=== PATIENT | female | born 1945 | race Caucasian/White ===

== ENCOUNTER 2016-03-20 15:10 | Observation (INO) ==
[2016-03-20] MEDS ORDERED: Ipratropium/Albuterol Neb 3 ML IH ONE ×2 (15:34→20:38)
--- NOTE | 2016-03-20 15:35 | Emergency Department Note ---
Disposition Clinical Impression: Pneumonia, COPD (chronic obstructive pulmonary disease) Disposition: Admitted As Inpatient Condition: Fair URI/Sore Throat HPI - General Chief Complaint: ED Upper Respiratory Infection Stated Complaint: flu- like symptoms Time Seen by Provider: 03/20/16 15:14 Source: patient Mode of arrival: ambulatory Limitations: no limitations Nursing Notes Reviewed: Yes Vital Signs Reviewed: Yes - History of Present Illness HPI Narrative: Emergency: Congestion patient thinks that she may be developing the flu she denies any blurred vision double vision loss and states that she is wheezing cannot catch her breath despite being on home oxygen he states this is more than her normal were normally she can break it with a breathing treatment Pt Subjective Complaint: fever, cough, flu symptoms, other (wheezing) Onset (ago): day(s) Duration: intermittent Severity: none Improves with: other (aerosols) Worsens with: exertion If sputum, description: watery Associated symptoms: Reports: myalgias, nasal congestion, cough, shortness of breath. Denies: fever, chills, voice changes, diaphoresis, headache, rhinorrhea , sore throat, stiff neck, chest pain, abdominal pain, nausea, vomiting, diarrhea, dysuria, rash, ear pain Treatments prior to arrival: other (see frequently in the er) - Related Data Home Medications Medication Instructions Recorded Confirmed Aspirin 81 mg PO DAILY 11/30/15 03/20/16 Digoxin [Lanoxin] 0.125 mg PO DAILY 11/30/15 03/20/16 Ferrous Sulfate 325 mg PO DAILY 11/30/15 03/20/16 Furosemide [Lasix] 20 mg PO DAILY 11/30/15 03/20/16 Gabapentin [Neurontin] 600 mg PO TID 11/30/15 03/20/16 Insulin LISPRO [HumaLOG] 4 units SQ TIDAC 11/30/15 03/20/16 Magnesium Oxide [Magnesium] 400 mg PO DAILY 11/30/15 03/20/16 Previous Rx's Medication Instructions Recorded Albuterol Neb [Proventil Neb] 2.5 mg IH Q4HR PRN #30 vial.neb 11/13/15 Albuterol Sulfate [Albuterol 2 puff IH Q6HR PRN #1 hfa.aer.ad 11/13/15 Inhaler] Ranolazine [Ranexa] 500 mg PO DAILY #7 tab.er.12h 01/18/16 Albuterol Sulfate [Albuterol 2 puff IH Q4HR #1 hfa.aer.ad 03/17/16 Inhaler] Benzonatate [Tessalon] 100 mg PO TID PRN #30 capsule 03/17/16 Allergies Allergy/AdvReac Type Severity Reaction Status Date / Time Penicillins Allergy Hives Verified 01/14/16 17:55 lorazepam [From Ativan] AdvReac Hives Verified 01/14/16 17:55 All systems ED: reviewed and negative except as stated. Constitutional: Reports: fever, weakness. Denies: chills Eyes: Denies: vision change ENT ED: Reports: congestion. Denies: ear pain, throat pain, dental pain Cardiovascular: Reports: dyspnea on exertion. Denies: chest pain, palpitations Respiratory: Reports: cough, dyspnea, wheezes, sputum production Gastrointestinal: Denies: abdominal pain, nausea, vomiting Genitourinary: Denies: urgency Integumentary: Denies: rash Neurological: Denies: headache Psychiatric: Reports: anxiety Endocrine: Denies: fatigue Hematological/Lymphatic: Denies: easy bleeding Allergic/Immunologic: Denies: facial swelling URI PMH - Past Medical History Medical history: Reports: arthritis, asthma, cardiomyopathy, COPD, CVA, diabetes , GERD, hyperlipidemia, hypertension, myocardial infarction, osteoporosis, peripheral artery disease Surgical history: Reports: hysterectomy Psychiatric history: Reports: anxiety, depression, panic disorder PELT SHEARER history: Reports: no PELT SHEARER history - Social History Smoking Status: Current every day smoker Alcohol use: Reports: none Drug use: Reports: none Physical Exam - General Limitations: no limitations General appearance: alert, in no apparent distress, anxious - Head Head exam: atraumatic, normocephalic, normal inspection - Eye Eye exam: Present: normal appearance, PERRL, EOMI - ENT ENT exam: normal exam, normal oropharynx, mucous membranes moist, normal external ear exam - Neck Neck exam: Present: normal inspection, full ROM, trachea midline - Chest Chest inspection: Present: normal inspection, symmetric chest wall rise - Respiratory Respiratory exam: Present: wheezes, accessory muscle use, prolonged expiratory phase - Cardiovascular Cardiovascular exam: Present: regular rate, normal rhythm, normal heart sounds - Abdominal Exam Abdominal exam: Present: soft, Non-Tender, normal bowel sounds. Absent: mass, pulsatile mass - Extremities Exam Extremities exam: Present: normal inspection, full ROM, normal capillary refill - Expanded Lower Extremity Exam Gait: observed and normal - Back Exam Back exam: Present: normal inspection, full ROM. Absent: muscle spasm - Neurological Exam Neurological exam: Present: alert, oriented X3, CN II-XII intact - Psychiatric Psychiatric exam: Present: anxious - Skin Skin exam: Present: warm, dry, intact, normal color Course Course Narrative: seen and examined flu swab done chest x-ray pending awaiting results Vital Signs Temperature 97.1 F L 03/20/16 15:14 Pulse Rate 94 03/20/16 15:14 Respiratory Rate 24 03/20/16 15:14 Blood Pressure 100/65 03/20/16 15:14 O2 Sat by Pulse Oximetry 100 03/20/16 15:14 Temperature 98.1 F 03/21/16 00:00 Pulse Rate 111 03/21/16 00:00 Respiratory Rate 19 03/21/16 00:00 Blood Pressure 125/71 03/21/16 00:00 O2 Sat by Pulse Oximetry 100 03/21/16 00:00 Oxygen Delivery Oxygen Delivery Nasal Cannula Upper Respiratory Infection - Differential Diagnosis Differential Diagnosis: Likely: upper respiratory infection, other viral infection, bronchitis, pneumonia - Medical Records Medical records reviewed: Yes I reviewed the patient's medical records. - Lab Data Lab results reviewed: Yes I reviewed the patient's lab results. Result diagrams: 03/20/16 19:32 03/20/16 19:32 - Radiology Data Radiology results reviewed: Yes I reviewed the patient's radiology results. ITS Impressions Chest X-Ray 03/20/16 16:23 IMPRESSION: Probable COPD. Increased lung markings at the bilateral parahilar regions, and at the right lung apex, likely related to bronchitis versus early number. D/ / David Owusu MD / David Owusu MD Interpreting Provider: David Owusu MD Critical Care Time Critical Care Time: No
[2016-03-20] MEDS ORDERED: Levofloxacin 500 MG/100 ML 500 MG/100 ML BAG IVPB ONE ×2 (17:16→17:51)
[2016-03-20] MEDS: 0.9 % Sodium Chloride 1,000 ML IVC SCH ×3 (17:45→23:46)
[2016-03-20] MEDS ORDERED: Ondansetron 4 MG/2 ML VIAL IVP PRN (17:51)
[2016-03-20] MEDS ORDERED: D5% in Water 1,000 ML IV PRN (17:51)
[2016-03-20] MEDS ORDERED: Naloxone 0.4 MG/ML INJ IVP PRN (17:51)
[2016-03-20] MEDS ORDERED: Dextrose Gel 15 GM PO PRN ×2 (17:51)
[2016-03-20] MEDS ORDERED: *HR* Dextrose 50 % in Water (Syg) 50 ML SYRINGE IVP PRN (17:51)
[2016-03-20] MEDS: Levofloxacin 750 MG/150 ML 750 MG/150 ML BAG IVPB SCH (18:23)
[2016-03-20 19:38] LABS: Basophils # 0.1 K/mcL (0.0-0.2); Eosinophils # 0.2 K/mcL (0.0-0.6); Eosinophils % 1.4 %; Hematocrit 40.1 % (35.3-44.9); Hemoglobin 12.7 g/dL (11.5-15.4); Immature Granulocytes % 0.6 % (0-4); Lymphocytes # 1.2 K/mcL (0.6-4.6); Mean Corpuscular HGB Conc 31.7 g/dL (31.6-35.5); Mean Corpuscular Hemoglobin 26.6 pg (28.0-33.3); Mean Corpuscular Volume 84.1 fL (83.0-100.0); Mean Platelet Volume 10.5 fL (9.4-12.4); Monocytes # 0.3 K/mcL (0.0-1.3); Monocytes % 2.5 %; Neutrophils # 11.1 K/mcL (1.6-8.9); Platelet Count 332 K/mcL (140-400); Red Blood Count 4.77 M/mcL (3.82-4.97); Red Cell Distribution Width 14.6 % (11.5-14.5); Segmented Neutrophils % 85.5 %
[2016-03-20 19:52] LABS: BUN/Creatinine Ratio 7 (6-26); Blood Urea Nitrogen 7 mg/dL (7-20); Calcium 9.1 mg/dL (8.6-10.8); Carbon Dioxide 18 mEq/L (19-29); Chloride 105 mEq/L (98-109); Glucose 306 mg/dL (70-99); Osmolality,Calculated 294 (280-300); Sodium 137 mEq/L (136-145); eGFR For African Americans > 60 (> 60); eGFR For Non-African Americans 51 (> 60)
[2016-03-20 19:54] LABS: Prothrombin Time 11.1 Seconds (9.4-12.1)
[2016-03-20 19:57] LABS: Activated Partial Thrombo Time 29.1 Seconds (26.0-36.0)
[2016-03-20] MEDS: Ipratropium/Albuterol Neb 3 ML IH SCH (21:02)
[2016-03-20] MEDS: Gabapentin 300 MG CAPSULE PO SCH (21:41)
[2016-03-20] MEDS: Insulin LISPRO 300 UNITS/3 ML VIAL SQ SCH (22:00)
[2016-03-21] MEDS: 0.9 % Sodium Chloride 1,000 ML IVC SCH ×3 (01:47→09:23)
[2016-03-21] MEDS: Ipratropium/Albuterol Neb 3 ML IH SCH ×3 (04:54→16:40)
[2016-03-21] MEDS: Insulin LISPRO 300 UNITS/3 ML VIAL SQ SCH ×7 (09:18→21:00)
[2016-03-21] MEDS: *HR* Digoxin 0.125 MG TABLET PO SCH (09:20)
[2016-03-21] MEDS: Ranolazine 500 MG TAB.ER.12H PO SCH (09:20)
[2016-03-21] MEDS: Magnesium Oxide 400 MG TABLET PO SCH (09:20)
[2016-03-21] MEDS: Aspirin 81 MG TAB.CHEW PO SCH (09:20)
[2016-03-21] MEDS: Furosemide 20 MG TABLET PO SCH (09:20)
[2016-03-21] MEDS: Albuterol 2.5 MG/3 ML NEBULIZER IH PRN ×2 (12:06→22:03)
--- NOTE | 2016-03-21 15:56 | Internal Med History&Physical ---
Date of Encounter: 03/21/16 Time of Encounter: 15:35 Assessment and Plan (1) COPD (chronic obstructive pulmonary disease) Current visit: Yes Status: Chronic She was given Levaquin and Solu-Medrol in emergency room. I will continue Levaquin and change to prednisone since she has no active wheezing. Further workup will be done as needed. Qualifiers: COPD type: unspecified COPD Qualified Code(s): J44.9 - Chronic obstructive pulmonary disease, unspecified (2) Folate deficiency Current visit: Yes Status: Acute We will recheck folate level in a.m. (3) CKD (chronic kidney disease) stage 3, GFR 30-59 ml/min Current visit: No Status: Chronic We will monitor renal indices. (4) DM type 2 (diabetes mellitus, type 2) Current visit: No Status: Chronic We will check hemoglobin A1c in a.m. Most recent level was 8.9% on 08/25/2015. Qualifiers: Diabetes mellitus complication status: with kidney complications Diabetes mellitus complication detail: with chronic kidney disease Diabetes mellitus jail insulin use: without assistant terminal manager use Chronic kidney disease stage: stage 3 (moderate) Qualified Code(s): E11.22 - Type 2 diabetes mellitus with diabetic chronic kidney disease; N18.3 - Chronic kidney disease, stage 3 ( moderate) (5) Diastolic heart failure Current visit: Yes Status: Chronic Continue aspirin and Lanoxin. Qualifiers: Heart failure chronicity: chronic Qualified Code(s): I50.32 - Chronic diastolic (congestive) heart failure Internal Medicine - H&P: HPI Chief complaint: Dyspnea Admitted From: Home Plans for Post Hospital Care: Home History of present illness: Ms. Jules is a 70 year old female who came to emergency room stating she had progressive dyspnea over the preceding few days at home. She states she had a cough productive of minimal white sputum. She was evaluated in the emergency room and felt to have exacerbation of COPD and possible early pneumonia. She was admitted to [facility] floor for ongoing care needs. Her respiratory history significant for having smoked since age 12 up to 3 packs per day. She wears oxygen 24/7 except taking it off to smoke. She had PFTs at [facility] approximately June 2013 and was diagnosed with COPD/emphysema. A chest CT was done May 2015 which showed severe COPD. Past Med Surg Social Fam HX - Past Medical History Medical history: arthritis, asthma, cardiomyopathy, COPD, CVA, diabetes, GERD, hyperlipidemia, hypertension, myocardial infarction, osteoporosis, peripheral artery disease Psychiatric history: anxiety, depression, panic disorder - Past Surgical History Surgical History: hysterectomy - Social History Smoking Status: Current every day smoker Packs per day: 0.5 Smokeless Tobacco Status: No Alcohol use: none Drug use: none - Family History Mother Family Member Ethnicity: Non- Living Status: Hx Family Cardiac Disorders: Yes Hx Family Respiratory Disorders: Yes Hx Family Cancer: Yes Hx Family GI Disorders: Yes Internal Medicine - H&P: Meds Albuterol Neb [Proventil Neb] 2.5 mg IH Q4HR PRN #30 vial.neb 11/13/15 [Rx] Albuterol Sulfate [Albuterol Inhaler] 2 puff IH Q6HR PRN #1 hfa.aer.ad 11/13/15 [Rx] Aspirin 81 mg PO DAILY 11/30/15 [History] Digoxin [Lanoxin] 0.125 mg PO DAILY 11/30/15 [History] Ferrous Sulfate 325 mg PO DAILY 11/30/15 [History] Furosemide [Lasix] 20 mg PO DAILY 11/30/15 [History] Gabapentin [Neurontin] 600 mg PO TID 11/30/15 [History] Insulin LISPRO [HumaLOG] 4 units SQ TIDAC 11/30/15 [History] Magnesium Oxide [Magnesium] 400 mg PO DAILY 11/30/15 [History] Ranolazine [Ranexa] 500 mg PO DAILY #7 tab.er.12h 01/18/16 [Rx] Albuterol Sulfate [Albuterol Inhaler] 2 puff IH Q4HR #1 hfa.aer.ad 03/17/16 [Rx] Benzonatate [Tessalon] 100 mg PO TID PRN #30 capsule 03/17/16 [Rx] Allergies Penicillins Allergy (Verified 01/14/16 17:55) Hives lorazepam [From Ativan] Adverse Reaction (Verified 01/14/16 17:55) Hives All Systems PM: A 10-system review of systems was performed and is negative for pertinent findings except as documented above in the HPI. Review of systems: Review of systems from her August 2015 [facility] hospitalization were reviewed and revised as below. Gen.: Her weight has been stable since the August 2015 [facility] hospitalization approximately 132 pounds. Cardiovascular: She has a history of hypertension. She had an echocardiogram done during the April 2014 [facility] stay which showed LVEF of 65-70% with mild LV diastolic dysfunction and normal systolic function. There was mild aortic regurgitation. She had possible NSTEMI at [facility] hospitalization April 2014 but declined further workup such as heart catheterization. She was hospitalized November 2015 at [facility] and had borderline high troponin. She left AMA before cardiology consultation could be done. She also refused colonoscopy at an earlier [facility] hospitalization. Respiratory: As per history of present illness GI: She has GERD but denies disorders of her liver gallbladder or exocrine pancreas. She has not had EGD or colonoscopy. : No history of hematuria dysuria or kidney stones Neurologic: No history of seizures. She is uncertain if she has had a stroke in the past. Endocrine: She has hyperlipidemia and diabetes but no known thyroid disease Hematology/oncology: she denies blood disorders or cancers. She has had microcytosis. She has history of B12 and folate deficiency Psychiatric: She has anxiety and depression Musk skeletal: She has DJD and chronic low back pain but no known gout. - Constitutional Vitals: Temp Pulse Resp BP Pulse Ox 97.6 F 102 30 101/60 95 03/21/16 15:20 03/21/16 15:20 03/21/16 15:20 03/21/16 15:20 03/21/16 15:20 Exam: Gen.: She is a well-developed well-nourished female who appears in minimal respiratory distress at present time. She coughed occasionally during examination. HEENT: Head is atraumatic and normal cephalic. Eyes: EOMI. There is no scleral icterus. Mouth: Mucosa is moist. Neck: Supple and nontender. There is no thyromegaly or adenopathy noted. Heart: Regular without murmurs gallops or ectopics. Lungs: No wheezes or crackles are heard. Abdomen: Soft and nontender. No masses or guarding noted. Extremities: There is no cyanosis edema or clubbing noted. Dorsalis pedis and posterior tibial pulses are trace -1+ palpable bilaterally. Neurologic: Mental status: She is talkative and a good historian. Cranial nerves: Smile is symmetric. Forehead wrinkles bilaterally. Tongue protrudes midline. EOMI. Motor: There is no pronator drift. Cerebellar: Finger to nose is intact bilaterally. Skin: Warm and dry Internal Med - H&P Results - Labs CBC & Chem 7: 03/20/16 19:32 03/20/16 19:32 Labs: Short CBC 03/20/16 Range/Units 19:32 WBC 13.0 H (4.3-11.1) K/mcL Hgb 12.7 D (11.5-15.4) g/dL Hct 40.1 (35.3-44.9) % Plt Count 332 (140-400) K/mcL Neutrophils # 11.1 H (1.6-8.9) K/mcL BMP 03/20/16 19:32 Sodium 137 Potassium 4.0 Chloride 105 Carbon Dioxide 18 L BUN 7 Creatinine 1.07 Glucose 306 H Calcium 9.1
[2016-03-21] MEDS ORDERED: *HR* LORazepam 0.5 MG TABLET PO PRN (20:01)
[2016-03-21] MEDS: Gabapentin 300 MG CAPSULE PO SCH (20:28)
[2016-03-21] MEDS: Budesonide/Formoterol 160/4.5 MDI IH SCH (22:04)
[2016-03-22] MEDS: Benzonatate 100 MG CAPSULE PO PRN ×2 (01:07→23:30)
[2016-03-22 05:39] LABS: Hematocrit 38.3 % (35.3-44.9); Hemoglobin 12.4 g/dL (11.5-15.4); Mean Corpuscular HGB Conc 32.4 g/dL (31.6-35.5); Mean Corpuscular Hemoglobin 26.7 pg (28.0-33.3); Mean Corpuscular Volume 82.4 fL (83.0-100.0); Mean Platelet Volume 10.4 fL (9.4-12.4); Platelet Count 349 K/mcL (140-400); Red Blood Count 4.65 M/mcL (3.82-4.97)
[2016-03-22 06:03] LABS: Magnesium 2.1 mg/dL (1.6-2.6); Uric Acid 4.4 mg/dL (2.6-6.0)
[2016-03-22 06:13] LABS: Digoxin < 0.3 ng/mL (0.8-2.0)
[2016-03-22 06:16] LABS: Lymphocytes # 2.2 K/mcL (0.6-4.6); Monocytes # 1.1 K/mcL (0.0-1.3); Toxic Vacuolation Present (Not Present)
[2016-03-22 06:17] LABS: Platelet Estimate Normal (Normal)
[2016-03-22 06:18] LABS: Anisocytosis 1+ (Not Present); Toxic Granulation Present (Not Present)
[2016-03-22 06:19] LABS: Hypersegmented Neutrophils Present (Not Present)
[2016-03-22] MEDS: Insulin LISPRO 300 UNITS/3 ML VIAL SQ SCH ×7 (08:16→20:58)
[2016-03-22 08:47] LABS: Hemoglobin A1C 7.4 %
[2016-03-22] MEDS: Furosemide 20 MG TABLET PO SCH (09:24)
[2016-03-22] MEDS: PredniSONE 10 MG TABLET PO SCH ×2 (09:24→16:26)
[2016-03-22] MEDS: *HR* Digoxin 0.125 MG TABLET PO SCH (09:24)
[2016-03-22] MEDS: Magnesium Oxide 400 MG TABLET PO SCH (09:24)
[2016-03-22] MEDS: Ranolazine 500 MG TAB.ER.12H PO SCH (09:24)
[2016-03-22] MEDS: Aspirin 81 MG TAB.CHEW PO SCH (09:25)
--- NOTE | 2016-03-22 10:33 | Internal Med Progress Note ---
Date of Encounter: 03/22/16 Time of Encounter: 10:25 - Assessment and plan (1) COPD (chronic obstructive pulmonary disease) Current Visit: Yes Status: Chronic Assessment and plan: March 22. Continue Levaquin and prednisone. I will order a NicoDerm patch. Qualifiers: COPD type: unspecified COPD Qualified Code(s): J44.9 - Chronic obstructive pulmonary disease, unspecified (2) Folate deficiency Current Visit: Yes Status: Acute Assessment and plan: March 22. Folate level is pending (3) CKD (chronic kidney disease) stage 3, GFR 30-59 ml/min Current Visit: No Status: Chronic Assessment and plan: March 22. We will monitor renal indices. (4) DM type 2 (diabetes mellitus, type 2) Current Visit: No Status: Chronic Assessment and plan: March 22. Hemoglobin A1c is slightly elevated at 7.4%. Blood sugars were reviewed. Will add Levemir and continue Accu-Cheks with SSI Qualifiers: Diabetes mellitus complication status: with kidney complications Diabetes mellitus complication detail: with chronic kidney disease Diabetes mellitus assistant terminal manager insulin use: without usp use Chronic kidney disease stage: stage 3 (moderate) Qualified Code(s): E11.22 - Type 2 diabetes mellitus with diabetic chronic kidney disease; N18.3 - Chronic kidney disease, stage 3 ( moderate) (5) Diastolic heart failure Current Visit: Yes Status: Chronic Assessment and plan: March 22. We will add Imdur and Coreg Qualifiers: Heart failure chronicity: chronic Qualified Code(s): I50.32 - Chronic diastolic (congestive) heart failure - Subjective Interval history: March 22. She has no new complaints. She feels she is having withdrawal from cigarettes and her Epsom at home. Reviewed her home medication list and Epsom is not listed - Constitutional Vitals: Temp Pulse Resp BP Pulse Ox 98.2 F 67 16 124/52 96 03/22/16 10:24 03/22/16 10:24 03/22/16 10:24 03/22/16 10:24 03/22/16 10:24 Exam: She is lying in bed and appears slightly anxious. Her heart is regular without murmurs gallops or ectopics. Lungs show no wheezes or crackles. I reviewed her medications and lab results. Internal Medicine: Result - Labs CBC & Chem 7: 03/22/16 05:23 03/20/16 19:32 Labs: Short CBC 03/22/16 Range/Units 05:23 WBC 27.6 H D (4.3-11.1) K/mcL Hgb 12.4 (11.5-15.4) g/dL Hct 38.3 (35.3-44.9) % Plt Count 349 (140-400) K/mcL Neutrophils # 24.0 H (1.6-8.9) K/mcL - ABG Interpretation ABG results: PT/INR, D-dimer PT 11.1 Seconds (9.4-12.1) 03/20/16 19:32 Consult Discharge Plan - Plan Referrals: NO,PCP [Primary Care Provider] - 1 week
[2016-03-22 10:37] LABS: % Iron Saturation 30 % (15-50); Iron 98 mcg/dL (50-170); Transferrin 236 mg/dL (180-382)
[2016-03-22] MEDS: Albuterol 2.5 MG/3 ML NEBULIZER IH PRN ×2 (10:38→21:29)
[2016-03-22] MEDS: Budesonide/Formoterol 160/4.5 MDI IH SCH ×2 (10:38→21:29)
[2016-03-22 10:58] LABS: Ferritin 103 ng/ml (5-204)
[2016-03-22] MEDS: Isosorbide MONOnitrate (24 HR) 30 MG TAB.ER.24H PO SCH (11:12)
[2016-03-22] MEDS: Nicotine 21 MG PATCH.TD24 TD SCH (11:12)
[2016-03-22] MEDS: Levofloxacin 750 MG/150 ML 750 MG/150 ML BAG IVPB SCH (17:38)
[2016-03-22] MEDS: Gabapentin 300 MG CAPSULE PO SCH (20:00)
[2016-03-22] MEDS: Insulin DETEMIR 100 UNIT/ML X5UNITS SQ SCH (20:58)
[2016-03-23 07:03] LABS: Calcium 9.6 mg/dL (8.6-10.8); Potassium 4.2 mEq/L (3.5-4.5)
[2016-03-23 07:19] LABS: Basophils # 0.1 K/mcL (0.0-0.2); Basophils % 0.3 %; Hematocrit 37.1 % (35.3-44.9); Hemoglobin 11.7 g/dL (11.5-15.4); Immature Granulocytes % 1.1 % (0-4); Lymphocytes # 3.6 K/mcL (0.6-4.6); Mean Corpuscular HGB Conc 31.5 g/dL (31.6-35.5); Mean Corpuscular Hemoglobin 26.5 pg (28.0-33.3); Mean Corpuscular Volume 84.1 fL (83.0-100.0); Mean Platelet Volume 10.8 fL (9.4-12.4); Monocytes # 1.3 K/mcL (0.0-1.3); Monocytes % 6.6 %; Neutrophils # 14.8 K/mcL (1.6-8.9); Platelet Count 328 K/mcL (140-400); Red Blood Count 4.41 M/mcL (3.82-4.97); Red Cell Distribution Width 14.9 % (11.5-14.5)
[2016-03-23] MEDS: Aspirin 81 MG TAB.CHEW PO SCH (09:02)
[2016-03-23] MEDS: Magnesium Oxide 400 MG TABLET PO SCH (09:03)
[2016-03-23] MEDS: *HR* Digoxin 0.125 MG TABLET PO SCH (09:03)
[2016-03-23] MEDS: PredniSONE 10 MG TABLET PO SCH ×2 (09:03→16:25)
[2016-03-23] MEDS: Ranolazine 500 MG TAB.ER.12H PO SCH (09:03)
[2016-03-23] MEDS: Isosorbide MONOnitrate (24 HR) 30 MG TAB.ER.24H PO SCH (09:04)
[2016-03-23] MEDS: Furosemide 20 MG TABLET PO SCH (09:04)
[2016-03-23] MEDS: Insulin LISPRO 300 UNITS/3 ML VIAL SQ SCH ×7 (09:07→22:20)
[2016-03-23] MEDS: Budesonide/Formoterol 160/4.5 MDI IH SCH ×2 (09:50→21:35)
[2016-03-23] MEDS: Nicotine 21 MG PATCH.TD24 TD SCH (12:56)
--- NOTE | 2016-03-23 15:45 | Internal Med Progress Note ---
Date of Encounter: 03/23/16 Time of Encounter: 15:25 - Assessment and plan (1) COPD (chronic obstructive pulmonary disease) Current Visit: Yes Status: Chronic Assessment and plan: March 22. Continue Levaquin and prednisone. I will order a NicoDerm patch. Qualifiers: COPD type: unspecified COPD Qualified Code(s): J44.9 - Chronic obstructive pulmonary disease, unspecified (2) Folate deficiency Current Visit: Yes Status: Acute Assessment and plan: March 22. Folate level is pending March 23. Folate level was low at 5.0. We will start folate supplement. (3) CKD (chronic kidney disease) stage 3, GFR 30-59 ml/min Current Visit: No Status: Chronic Assessment and plan: March 22. We will monitor renal indices. (4) DM type 2 (diabetes mellitus, type 2) Current Visit: No Status: Chronic Assessment and plan: March 22. Hemoglobin A1c is slightly elevated at 7.4%. Blood sugars were reviewed. Will add Levemir and continue Accu-Cheks with SSI March 23. Blood sugar slightly improved. Continue Levemir and Accu-Cheks with SSI. Qualifiers: Diabetes mellitus complication status: with kidney complications Diabetes mellitus complication detail: with chronic kidney disease Diabetes mellitus emt intermediate insulin use: without emt intermediate use Chronic kidney disease stage: stage 3 (moderate) Qualified Code(s): E11.22 - Type 2 diabetes mellitus with diabetic chronic kidney disease; N18.3 - Chronic kidney disease, stage 3 ( moderate) (5) Diastolic heart failure Current Visit: Yes Status: Chronic Assessment and plan: March 22. We will add Imdur and Coreg March 23. Continue present regimen. Qualifiers: Heart failure chronicity: chronic Qualified Code(s): I50.32 - Chronic diastolic (congestive) heart failure - Subjective Interval history: March 22. She has no new complaints. She feels she is having withdrawal from cigarettes and her Childs at home. Reviewed her home medication list and Childs is not listed March 23. She has no new complaints. She states she does not feel well. She has nausea but no vomiting. She still has dyspnea - Constitutional Vitals: Temp Pulse Resp BP Pulse Ox 97.5 F L 120 19 119/80 96 03/23/16 15:28 03/23/16 15:28 03/23/16 15:28 03/23/16 15:28 03/23/16 15:28 Exam: She appears uncomfortable but in no severe distress. Heart is regular with rate 108/m. Lungs show diminished breath sounds but no wheezes crackles or egophony. Abdomen shows bowel sounds present with minimal tenderness to palpation. Extremities show no pitting edema. I reviewed her medications and lab results. Internal Medicine: Result - Labs CBC & Chem 7: 03/23/16 06:15 03/23/16 06:15 Labs: Short CBC 03/23/16 Range/Units 06:15 WBC 20.0 H (4.3-11.1) K/mcL Hgb 11.7 (11.5-15.4) g/dL Hct 37.1 (35.3-44.9) % Plt Count 328 (140-400) K/mcL Neutrophils # 14.8 H (1.6-8.9) K/mcL BMP 03/23/16 06:15 Sodium 137 Potassium 4.2 Chloride 102 Carbon Dioxide 22 BUN 25 H D Creatinine 1.38 H Glucose 279 H Calcium 9.6 - ABG Interpretation ABG results: PT/INR, D-dimer PT 11.1 Seconds (9.4-12.1) 03/20/16 19:32 Consult Discharge Plan - Plan Referrals: NO,PCP [Primary Care Provider] - 1 week
[2016-03-23] MEDS: Benzonatate 100 MG CAPSULE PO PRN (18:21)
[2016-03-23] MEDS: Gabapentin 300 MG CAPSULE PO SCH (22:17)
[2016-03-23] MEDS: Insulin DETEMIR 100 UNIT/ML X5UNITS SQ SCH (22:20)
[2016-03-24 05:32] LABS: Basophils # 0.1 K/mcL (0.0-0.2); Basophils % 0.4 %; Eosinophils % 0.2 %; Hematocrit 43.4 % (35.3-44.9); Hemoglobin 13.8 g/dL (11.5-15.4); Immature Granulocytes % 1.3 % (0-4); Lymphocytes # 3.9 K/mcL (0.6-4.6); Lymphocytes % 19.7 %; Mean Corpuscular HGB Conc 31.8 g/dL (31.6-35.5); Mean Corpuscular Hemoglobin 26.2 pg (28.0-33.3); Mean Corpuscular Volume 82.5 fL (83.0-100.0); Mean Platelet Volume 11.2 fL (9.4-12.4); Monocytes # 1.3 K/mcL (0.0-1.3); Monocytes % 6.7 %; Neutrophils # 14.3 K/mcL (1.6-8.9); Platelet Count 383 K/mcL (140-400); Red Blood Count 5.26 M/mcL (3.82-4.97); Red Cell Distribution Width 14.9 % (11.5-14.5); Segmented Neutrophils % 71.7 %
[2016-03-24 05:53] LABS: Albumin 3.4 g/dL (3.5-5.0); Bilirubin,Total 0.2 mg/dL (0.2-1.2); Calcium 9.4 mg/dL (8.6-10.8); Globulin 3.5 g/dL (2.4-3.5); Potassium 4.6 mEq/L (3.5-4.5); Total Protein 6.9 g/dL (6.0-8.3)
[2016-03-24] MEDS: Ranolazine 500 MG TAB.ER.12H PO SCH (09:21)
[2016-03-24] MEDS: Aspirin 81 MG TAB.CHEW PO SCH (09:21)
[2016-03-24] MEDS: *HR* Digoxin 0.125 MG TABLET PO SCH (09:22)
[2016-03-24] MEDS: Isosorbide MONOnitrate (24 HR) 30 MG TAB.ER.24H PO SCH (09:22)
[2016-03-24] MEDS: Magnesium Oxide 400 MG TABLET PO SCH (09:23)
[2016-03-24] MEDS: PredniSONE 10 MG TABLET PO SCH (09:23)
[2016-03-24] MEDS: Furosemide 20 MG TABLET PO SCH (09:23)
[2016-03-24] MEDS: Insulin LISPRO 300 UNITS/3 ML VIAL SQ SCH ×4 (09:28→11:54)
[2016-03-24] MEDS: Budesonide/Formoterol 160/4.5 MDI IH SCH (11:07)
[2016-03-24 11:09] VITALS: BP 100/66
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
[2016-03-25 21:13] LABS: Amphetamines NEGATIVE ng/mL (Cutoff 30); Barbiturates NEGATIVE ng/mL (Cutoff 75); Benzodiazepines NEGATIVE ng/mL (Cutoff 75); Cocaine NEGATIVE ng/mL (Cutoff 30); Methadone NEGATIVE ng/mL (Cutoff 40); Methamphetamines NEGATIVE ng/mL (Cutoff 30); Opiates NEGATIVE ng/mL (Cutoff 30); Phencyclidine NEGATIVE ng/mL (Cutoff 15)
== END 2016-03-24 14:45 | disposition home or self-care (01) ==
LOC: EMEROOPIK 15:10 → INPPIK 15:10
PROVIDERS: ADMIT Internal Medicine; ATTEND Internal Medicine

== ENCOUNTER 2016-08-07 00:09 | Observation (INO) ==
--- NOTE | 2016-08-07 00:17 | Emergency Department Note ---
Disposition Clinical Impression: Confusion and disorientation, Reaction, situational, acute, to stress Disposition: Admitted As Inpatient Condition: Good Referrals: NO,PCP [Primary Care Provider] - Forms: Work/School Release, ED Satisfaction Letter Psych HPI - General Chief Complaint: ED General Medical Stated Complaint: Bilat foot pain, short of breath, anxiety Time Seen by Provider: 08/07/16 00:15 Source: patient, EMS, police Mode of arrival: EMS Limitations: age Nursing Notes Reviewed: Yes Vital Signs Reviewed: Yes - History of Present Illness HPI Narrative: Patient arrives by EMS, tearful and reporting that her sons have been arrested and removed from her household due to their use of drugs. There is concern for this patient's mental status to be able to live alone as well as concern for her exposure to heroin, carfentanyl and other illicit drugs. The patient does report that she feels somewhat short of breath with her anxiety. She denies any headache, visual changes, chest pain or cough. She denies abdominal pain, nausea or diarrhea. She denies any extremity complaints. She states that today was basically a normal day for her other than the intervention of the police and the arrests at the house. EMS does report that she was not able to identify the day, the date or month or the year. On arrival here she has similarly disoriented and although she states she knows the name of the president, she is unable to verbalize it. This does raise concern for her current ability to live alone. Pt complaint: medical clearance request If medical clearance, reason: psychiatric condition Onset (ago): unknown Context: significant life stressor Alleged intoxication: No Associated Psychiatric Symptoms: anxiety Associated symptoms: Reports: shortness of breath. Denies: confusion, headache , nausea, vomiting, syncope, insomnia Traumatic symptoms: denies traumatic injury Treatments prior to arrival: none Self harm or harm to others: denies thoughts of harming self/others - Related Data Home Medications Medication Instructions Recorded Confirmed Atorvastatin Calcium 40 mg PO DAILY 07/08/16 08/07/16 Cilostazol [Pletal] 100 mg PO BID 07/08/16 08/07/16 Furosemide [Lasix] 20 mg PO DAILY 07/08/16 08/07/16 Isosorbide MONOnitrate (24 HR) 60 mg PO DAILY 07/08/16 08/07/16 [Imdur] Metformin HCl [Glucophage] 500 mg PO BID 07/08/16 08/07/16 Metoprolol XL (24 HR) Succ [Toprol 25 mg PO DAILY 07/08/16 08/07/16 XL] Ranolazine [Ranexa] 500 mg PO BID 07/08/16 08/07/16 Albuterol Neb [Proventil Neb] 2.5 mg IH Q4HR 08/07/16 08/07/16 Albuterol Sulfate [Ventolin Hfa] 18 gm IH Q6H 08/07/16 08/07/16 Insulin ASPART [Novolog Flexpen] 1 unit SQ BID 08/07/16 08/07/16 Allergies Allergy/AdvReac Type Severity Reaction Status Date / Time lorazepam [From Ativan] Allergy Hives Verified 06/07/16 13:46 Penicillins Allergy Hives Verified 06/07/16 13:46 All systems ED: reviewed and negative except as stated. Past Medical History - Past Medical History Attestation: Yes The following information was validated with the patient. 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 Absent: scleral icterus, conjunctival injection - ENT ENT exam: normal exam, normal oropharynx, mucous membranes moist - Neck Neck exam: Present: normal inspection, full ROM, trachea midline - Chest Chest inspection: Present: normal inspection, symmetric chest wall rise - Cardiovascular Cardiovascular exam: Present: regular rate, normal rhythm, normal heart sounds. Absent: tachycardia - Abdominal Exam Abdominal exam: Present: soft, Non-Tender, normal bowel sounds. Absent: tenderness, distention, guarding, rebound, rigidity - Extremities Exam Extremities exam: Present: normal inspection, full ROM, normal capillary refill. Absent: tenderness, pedal edema, calf tenderness - Expanded Lower Extremity Exam Neurovascular/Tendon exam: Present: normal capillary refill. Absent: motor deficit, sensory deficit, tendon deficit Gait: not tested/not observed - Back Exam Back exam: Present: normal inspection, full ROM. Absent: tenderness, vertebral tenderness - Neurological Exam Neurological exam: Present: alert. Absent: oriented X3, motor sensory deficit - Psychiatric Psychiatric exam: Present: agitated, anxious - Skin Skin exam: Present: warm, dry, intact, normal color. Absent: rash, diaphoresis , pallor Course Course Narrative: 0130: With return of the patient's lab work, Dr. Elam has been contacted. The patient has not oriented to take care of herself at home. She does not know how to take her home medicines or doses of her insulin. I do not believe she is even really able to follow her blood sugars competently at home. She is currently at her baseline status and is resting comfortably, oxygenating well and sleeping comfortably in the emergency department. There has been communication with Adult Protective Services and she will need to be observed until they can have an emergency court meeting on Monday to discuss her safe treatment. She is coordinated to observation until the medical floor. Verbal orders obtained. Her condition is stable. Vital Signs Temperature 97.8 F 08/07/16 00:15 Pulse Rate 89 08/07/16 00:15 Respiratory Rate 16 08/07/16 00:15 Blood Pressure 97/67 08/07/16 00:15 O2 Sat by Pulse Oximetry 96 08/07/16 00:15 Temperature 97.8 F 08/07/16 00:15 Pulse Rate 110 08/07/16 01:34 Respiratory Rate 18 08/07/16 01:34 Blood Pressure 115/71 08/07/16 01:34 O2 Sat by Pulse Oximetry 94 08/07/16 01:34 Oxygen Delivery Oxygen Delivery Room Air Psych - Lab Data Lab results reviewed: Yes I reviewed the patient's lab results. Result diagrams: 08/07/16 00:35 08/07/16 00:35 Lab Results 08/07/16 08/07/16 08/07/16 Range/Units 00:35 00:35 00:35 WBC 17.3 H (4.3-11.1) K/mcL RBC 4.63 (3.82-4.97) M/mcL Hgb 12.4 (11.5-15.4) g/dL Hct 38.7 (35.3-44.9) % MCV 83.6 (83.0-100.0) fL MCH 26.8 L (28.0-33.3) pg MCHC 32.0 (31.6-35.5) g/dL RDW 14.0 (11.5-14.5) % Plt Count 418 H (140-400) K/mcL MPV 9.8 (9.4-12.4) fL Immature Gran % 0.6 (0-4) % Seg Neutrophils % 69.2 % Lymphocytes % 20.7 % Monocytes % 7.3 % Eosinophils % 1.4 % Basophils % 0.8 % Neutrophils # 12.0 H (1.6-8.9) K/mcL Lymphocytes # 3.6 (0.6-4.6) K/mcL Monocytes # 1.3 (0.0-1.3) K/mcL Eosinophils # 0.2 (0.0-0.6) K/mcL Basophils # 0.1 (0.0-0.2) K/mcL PT 12.0 (9.4-12.1) Seconds INR 1.1 APTT 30.8 (26.0-36.0) Seconds Sodium 134 L (136-145) mEq/L Potassium 3.9 (3.5-4.5) mEq/L Chloride 101 (98-109) mEq/L Carbon Dioxide 22 (19-29) mEq/L BUN 6 L (7-20) mg/dL Creatinine 0.99 (0.57-1.11) mg/dL Est GFR ( Amer) > 60 (> 60) Est GFR (Non-Af Amer) 55 L (> 60) BUN/Creatinine Ratio 6 (6-26) Glucose 183 H (70-99) mg/dL POC Glucose (58-89) Calculated Osmolality 280 (280-300) Calcium 9.6 (8.6-10.8) mg/dL Total Bilirubin 0.3 (0.2-1.2) mg/dL Direct Bilirubin 0.1 (0.0-0.5) mg/dL Indirect Bilirubin 0.2 (0.0-1.2) mg/dL AST 15 (5-34) Units/L ALT 6 (0-55) Units/L Alkaline Phosphatase 169 H (38-126) Units/L Serum Total Protein 7.4 (6.0-8.3) g/dL Albumin 3.5 (3.5-5.0) g/dL Globulin 3.9 H (2.4-3.5) g/dL Albumin/Globulin Ratio 0.9 L (1.1-2.2) Salicylates (15-30) mg/dL Acetaminophen (10-30) mcg/mL Ethyl Alcohol < 10 (0-10) mg/dL 08/07/16 08/07/16 Range/Units 00:35 01:00 WBC (4.3-11.1) K/mcL RBC (3.82-4.97) M/mcL Hgb (11.5-15.4) g/dL Hct (35.3-44.9) % MCV (83.0-100.0) fL MCH (28.0-33.3) pg MCHC (31.6-35.5) g/dL RDW (11.5-14.5) % Plt Count (140-400) K/mcL MPV (9.4-12.4) fL Immature Gran % (0-4) % Seg Neutrophils % % Lymphocytes % % Monocytes % % Eosinophils % % Basophils % % Neutrophils # (1.6-8.9) K/mcL Lymphocytes # (0.6-4.6) K/mcL Monocytes # (0.0-1.3) K/mcL Eosinophils # (0.0-0.6) K/mcL Basophils # (0.0-0.2) K/mcL PT (9.4-12.1) Seconds INR APTT (26.0-36.0) Seconds Sodium (136-145) mEq/L Potassium (3.5-4.5) mEq/L Chloride (98-109) mEq/L Carbon Dioxide (19-29) mEq/L BUN (7-20) mg/dL Creatinine (0.57-1.11) mg/dL Est GFR ( Amer) (> 60) Est GFR (Non-Af Amer) (> 60) BUN/Creatinine Ratio (6-26) Glucose (70-99) mg/dL POC Glucose 156 H (58-89) Calculated Osmolality (280-300) Calcium (8.6-10.8) mg/dL Total Bilirubin (0.2-1.2) mg/dL Direct Bilirubin (0.0-0.5) mg/dL Indirect Bilirubin (0.0-1.2) mg/dL AST (5-34) Units/L ALT (0-55) Units/L Alkaline Phosphatase (38-126) Units/L Serum Total Protein (6.0-8.3) g/dL Albumin (3.5-5.0) g/dL Globulin (2.4-3.5) g/dL Albumin/Globulin Ratio (1.1-2.2) Salicylates < 5.0 L (15-30) mg/dL Acetaminophen < 1.0 L (10-30) mcg/mL Ethyl Alcohol (0-10) mg/dL Psychiatric Medical Clearance - Medical Clearance Checklist Medical History: No Social History Section defined Current Vitals: Last Vital Signs Temp 97.8 F 08/07/16 00:15 Pulse 110 08/07/16 01:34 Resp 18 08/07/16 01:34 BP 115/71 08/07/16 01:34 Pulse Ox 94 08/07/16 01:34 Psychiatric Lab Panel: Drug Levels and Toxicity 08/07/16 08/07/16 00:35 00:35 Acetaminophen < 1.0 L Ethyl Alcohol < 10 Abnormal Labs: Abnormal lab results WBC 17.3 K/mcL (4.3-11.1) H 08/07/16 00:35 MCH 26.8 pg (28.0-33.3) L 08/07/16 00:35 Plt Count 418 K/mcL (140-400) H 08/07/16 00:35 Neutrophils # 12.0 K/mcL (1.6-8.9) H 08/07/16 00:35 Sodium 134 mEq/L (136-145) L 08/07/16 00:35 BUN 6 mg/dL (7-20) L 08/07/16 00:35 Est GFR (Non-Af Amer) 55 (> 60) L 08/07/16 00:35 Glucose 183 mg/dL (70-99) H 08/07/16 00:35 POC Glucose 156 (58-89) H 08/07/16 01:00 Alkaline Phosphatase 169 Units/L (38-126) H 08/07/16 00:35 Globulin 3.9 g/dL (2.4-3.5) H 08/07/16 00:35 Albumin/Globulin Ratio 0.9 (1.1-2.2) L 08/07/16 00:35 Salicylates < 5.0 mg/dL (15-30) L 08/07/16 00:35 Acetaminophen < 1.0 mcg/mL (10-30) L 08/07/16 00:35 Statement of Medical Clearance: I have evaluated the patient, reviewed diagnostic information, and certify that the patient's medical condition is sufficiently stable that transfer to the psychiatric unit does not pose a significant risk of deterioration.
[2016-08-07 00:48] LABS: Basophils # 0.1 K/mcL (0.0-0.2); Basophils % 0.8 %; Eosinophils # 0.2 K/mcL (0.0-0.6); Eosinophils % 1.4 %; Hematocrit 38.7 % (35.3-44.9); Hemoglobin 12.4 g/dL (11.5-15.4); Immature Granulocytes % 0.6 % (0-4); Lymphocytes # 3.6 K/mcL (0.6-4.6); Lymphocytes % 20.7 %; Mean Corpuscular Hemoglobin 26.8 pg (28.0-33.3); Mean Corpuscular Volume 83.6 fL (83.0-100.0); Mean Platelet Volume 9.8 fL (9.4-12.4); Monocytes # 1.3 K/mcL (0.0-1.3); Monocytes % 7.3 %; Platelet Count 418 K/mcL (140-400); Red Blood Count 4.63 M/mcL (3.82-4.97); Segmented Neutrophils % 69.2 %
[2016-08-07 00:58] LABS: INR 1.1
[2016-08-07 01:00] LABS: Activated Partial Thrombo Time 30.8 Seconds (26.0-36.0)
[2016-08-07 01:11] LABS: Acetaminophen < 1.0 mcg/mL (10-30); Alanine Aminotransferase 6 Units/L (0-55); Albumin 3.5 g/dL (3.5-5.0); Albumin/Globulin Ratio 0.9 (1.1-2.2); Alkaline Phosphatase 169 Units/L (38-126); Aspartate Amino Transferase 15 Units/L (5-34); BUN/Creatinine Ratio 6 (6-26); Bilirubin,Direct 0.1 mg/dL (0.0-0.5); Bilirubin,Indirect 0.2 mg/dL (0.0-1.2); Bilirubin,Total 0.3 mg/dL (0.2-1.2); Blood Urea Nitrogen 6 mg/dL (7-20); Calcium 9.6 mg/dL (8.6-10.8); Carbon Dioxide 22 mEq/L (19-29); Chloride 101 mEq/L (98-109); Ethanol < 10 mg/dL (0-10); Globulin 3.9 g/dL (2.4-3.5); Glucose 183 mg/dL (70-99); Osmolality,Calculated 280 (280-300); Potassium 3.9 mEq/L (3.5-4.5); Salicylate < 5.0 mg/dL (15-30); Sodium 134 mEq/L (136-145); Total Protein 7.4 g/dL (6.0-8.3); eGFR For African Americans > 60 (> 60); eGFR For Non-African Americans 55 (> 60)
[2016-08-07 01:44] LABS: Bilirubin,Urine Negative (Negative); Blood,Urine Negative (Negative); Clarity,Urine Clear (Clear); Color,Urine Straw (Yellow); Glucose,Urine (UA) Normal (Normal); Ketones,Urine Negative (Negative); Leukocyte Esterase,Urine Negative (Negative); Nitrite,Urine Negative (Negative); Protein,Urine Negative (Neg-Trace); Urobilinogen,Urine Normal (Normal)
[2016-08-07 01:54] LABS: Amphetamine Screen,Urine Negative ng/mL (Cutoff=1000); Barbiturate Screen,Urine Negative ng/mL (Cutoff=200); Benzodiazepines Screen,Urine Negative ng/mL (Cutoff=200); Cannabinoid Screen,Urine Negative ng/mL (Cutoff = 50); Cocaine Screen,Urine Negative ng/mL (Cutoff= 300); Opiate Screen,Urine Negative ng/mL (Cutoff=300); Phencyclidine Screen,Urine Negative ng/mL (Cutoff=25)
[2016-08-07] MEDS ORDERED: Acetaminophen 325 MG TABLET PO PRN ×2 (02:35→18:52)
[2016-08-07] MEDS ORDERED: Naloxone 0.4 MG/ML INJ IVP PRN (02:35)
[2016-08-07] MEDS ORDERED: *HR* Dextrose 50 % in Water (Syg) 50 ML SYRINGE IVP PRN (02:35)
[2016-08-07] MEDS ORDERED: MOM Conc 10 ML UD.LIQ PO PRN (02:35)
[2016-08-07] MEDS ORDERED: Ondansetron ODT 4 MG TAB.RAPDIS SL PRN (02:35)
[2016-08-07] MEDS ORDERED: Dextrose Gel 15 GM PO PRN ×2 (02:35)
[2016-08-07] MEDS ORDERED: D5% in Water 1,000 ML IVC PRN (02:35)
[2016-08-07] MEDS: Albuterol 2.5 MG/3 ML NEBULIZER IH SCH ×6 (03:58→23:47)
[2016-08-07] MEDS ORDERED: Albuterol 2.5 MG/3 ML NEBULIZER IH SCH (04:00)
[2016-08-07] MEDS: Insulin LISPRO 300 UNITS/3 ML VIAL SQ SCH ×3 (07:56→16:39)
[2016-08-07] MEDS ORDERED: Ranolazine 500 MG TAB.ER.12H PO SCH (09:00)
[2016-08-07] MEDS ORDERED: Furosemide 20 MG TABLET PO SCH ×2 (09:00)
[2016-08-07] MEDS ORDERED: *HR* Metformin 500 MG TABLET PO SCH ×2 (09:00)
[2016-08-07] MEDS ORDERED: Metoprolol XL (24 HR) Succ 25 MG TAB.ER.24H PO SCH (09:00)
[2016-08-07] MEDS ORDERED: Isosorbide MONOnitrate (24 HR) 60 MG TAB.ER.24H PO SCH (09:00)
[2016-08-07] MEDS: ALPRAZolam 0.25 MG TABLET PO PRN (09:17)
[2016-08-07] MEDS: Nicotine 21 MG PATCH.TD24 TD SCH (11:42)
--- NOTE | 2016-08-07 13:59 | Internal Med History&Physical ---
Date of Encounter: 08/07/16 Time of Encounter: 13:55 Assessment and Plan (1) Cellulitis of toe of left foot Current visit: Yes Status: Acute We will start her on Bactrim and IV Cipro sought. The Pletal and Zofran because of interaction follow-up labs (2) Confusion and disorientation Current visit: Yes Status: Acute Confusion seems to be improving and she is alert times self and place reason she is here but does not know the date (3) Abscess of toe of left foot Current visit: Yes Status: Acute We will order MRI with contrast for possible cellulitis (4) Dry gangrene Current visit: Yes Status: Acute Observe appearing on the results of the MRI she may need debrided (5) Peripheral arterial disease Current visit: Yes Status: Acute She she does not have a primary care provider will she can take an aspirin a day (6) Coronary artery disease Current visit: Yes Status: Acute She denies any chest pain even though she is off the Imdur Qualifiers: Coronary Disease-Associated Artery/Lesion type: [place] artery [place] vs. transplanted heart: [place] heart Associated angina: without angina Qualified Code(s): I25.10 - Atherosclerotic heart disease of [place] coronary artery without angina pectoris (7) DM type 2 (diabetes mellitus, type 2) Current visit: No Status: Chronic I start her on sliding scale insulin and Accu-Cheks Qualifiers: Diabetes mellitus complication status: with circulatory complication Diabetes mellitus complication detail: with peripheral angiopathy with gangrene Diabetes mellitus safety consultant insulin use: with prison use Qualified Code( s): E11.52 - Type 2 diabetes mellitus with diabetic peripheral angiopathy with gangrene; Z79.4 - intermediate (current) use of insulin (8) Reaction, situational, acute, to stress Current visit: Yes Status: Acute Son and granddaughter were taken to custody by the police Internal Medicine - H&P: HPI Chief complaint: Confusion Admitted From: Home Plans for Post Hospital Care: Home History of present illness: Ms. Jules is a 71 year old female presented to the emergency room being brought for concerns about her being a little confused and possible drug use. Her son and granddaughter were taken in the custody. She is, stressed out about the whole situation. She reports wanting to go home either tonight or tomorrow. Complain about her foot but understood told me that her foot was painful. Her left foot all the toes are red today toe and fourth toe and areas of black. They chose the area of blackheads surrounding white tissue. Did have elevation of white count 17.3. I did call bed management discussed options. If she has osteomyelitis meeting criteria. Consulted with radiology will order an MRI of the area with contrast. She reports not seen Dr. Lennon for 3 months and is out of all of her medicines daily she told nurse before she was discharged from Dr. Lennon because of admitting to using marijuana. She denies using street drugs currently. 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 She did not have a specific drug of choice. He reports a left foot pain is about 9 out of 10 most about 8 out 10 with the Tylenol he cannot sleep with the Tylenol. Discussed with her about podiatry. Dr. Candelario can discuss it more with her after the MRI results. She apparently had been on insulin in the past but does not have any now. Denies any chest pain or shortness of breath, nausea vomiting diarrhea rest review of systems was negative. She is alert and oriented except for today's date. Her questions were answered and concerns addressed Past Med Surg Social Fam HX - Past Medical History Medical history: arthritis, asthma, COPD (Home O2), CVA (Dysphonia has resolved) , diabetes, GERD, hyperlipidemia, hypertension, myocardial infarction, osteoporosis, peripheral artery disease, other (Former drug addict, peripheral arterial disease,) Psychiatric history: anxiety, depression, panic disorder - Past Surgical History Surgical History: TRISTON/BSO, other (T&A) - Social History Smoking Status: Current every day smoker (A [id number] history recommended lung cancer screening.Smoking increases your risk of heart attacks, strokes, lung cancer, emphysema,chronic obstructive pulmonary disease, bronchitis, peripheral vascular disease, I recommend that you give it up. If you wants help in the future, please ask your provider.) Packs per day: 1 pack Smokeless Tobacco Status: No Alcohol use: none Drug use: none Current living situation: With Family - Family History Father Living Status: (Heart attack) Hx Family Cardiac Disorders: Yes (Heart attack and stroke) Hx Family Endocrine Disorder: Yes (Diabetes) Mother Family Member Ethnicity: Non- Living Status: (Heart attack) Hx Family Cardiac Disorders: Yes Hx Family Respiratory Disorders: Yes Hx Family Cancer: Yes Hx Family GI Disorders: Yes Internal Medicine - H&P: Meds Atorvastatin Calcium 40 mg PO DAILY 07/08/16 [History] Cilostazol [Pletal] 100 mg PO BID 07/08/16 [History] Furosemide [Lasix] 20 mg PO DAILY 07/08/16 [History] Isosorbide MONOnitrate (24 HR) [Imdur] 60 mg PO DAILY 07/08/16 [History] Metformin HCl [Glucophage] 500 mg PO BID 07/08/16 [History] Metoprolol XL (24 HR) Succ [Toprol XL] 25 mg PO DAILY 07/08/16 [History] Ranolazine [Ranexa] 500 mg PO BID 07/08/16 [History] Albuterol Neb [Proventil Neb] 2.5 mg IH Q4HR 08/07/16 [History] Albuterol Sulfate [Ventolin Hfa] 18 gm IH Q6H 08/07/16 [History] Insulin ASPART [Novolog Flexpen] 1 unit SQ BID 08/07/16 [History] Allergies Penicillins Allergy (Verified 06/07/16 13:46) Hives All Systems PM: A 10-system review of systems was performed and is negative for pertinent findings except as documented above in the HPI. - Constitutional Vitals: Temp Pulse Resp BP Pulse Ox 97.5 F L 78 16 114/63 99 08/07/16 11:30 08/07/16 11:30 08/07/16 12:34 08/07/16 11:30 08/07/16 12:34 - Head Head exam: Present: atraumatic, normocephalic - Eye Eye exam: Present: PERRL, conjuntiva pink, sclera anicteric Pupils: Present: PERRL - Neck Neck exam general surgery: Present: supple, trachea midline. Absent: lymphadenopathy - Respiratory Respiratory exam: Present: CTAB. Absent: accessory muscle use, rales, rhonchi, wheezes - Cardiovascular Cardiovascular exam: Present: RRR, +S1, +S2. Absent: diastolic murmur, gallop, rubs, systolic murmur - GI/Abdominal GI/Abdominal exam: Present: normal bowel sounds, soft, no peritoneal signs. Absent: distended, tenderness - Extremities Exam Extremities exam: Present: warm, radial pulses palpable and symetrical. Absent : calf tenderness, cyanotic, pedal edema Additional comments: Left toes were all red without pus least swollen and warm. The big toe has a black area about 4 mm surrounded by white skin the fourth toe has black area about 2 mm - Neurological Exam Neurological exam: Present: CN II-XII intact, oriented X3, no focal deficits. Absent: pronater drift, facial droop, speech deficit - Skin Skin exam: Present: dry, intact Internal Med - H&P Results - Labs CBC & Chem 7: 08/07/16 00:35 08/07/16 00:35
[2016-08-07] MEDS: Isosorbide MONOnitrate (24 HR) 60 MG TAB.ER.24H PO SCH (15:31)
[2016-08-07] MEDS: Metoprolol XL (24 HR) Succ 25 MG TAB.ER.24H PO SCH (15:31)
[2016-08-07] MEDS: Ranolazine 500 MG TAB.ER.12H PO SCH (15:31)
[2016-08-07] MEDS: Aspirin 81 MG TAB.CHEW PO SCH (15:32)
[2016-08-07] MEDS: Sulfamethoxazole/Trimeth DS 1 EACH TABLET PO SCH ×2 (15:32→21:38)
[2016-08-07] MEDS ORDERED: *HR* HYDROcodone/Acet 5/325 mg TABLET PO PRN (18:35)
[2016-08-07] MEDS: *HR* HYDROcodone/Acet 5/325 mg TABLET PO PRN (19:10)
[2016-08-08] MEDS: Albuterol 2.5 MG/3 ML NEBULIZER IH SCH ×3 (04:50→12:41)
[2016-08-08] MEDS: *HR* HYDROcodone/Acet 5/325 mg TABLET PO PRN ×3 (06:22→23:17)
[2016-08-08] MEDS: ALPRAZolam 0.25 MG TABLET PO PRN ×3 (06:46→17:45)
[2016-08-08 08:17] LABS: Basophils % 0.9 %; Eosinophils # 0.3 K/mcL (0.0-0.6); Eosinophils % 1.6 %; Hematocrit 36.7 % (35.3-44.9); Hemoglobin 11.7 g/dL (11.5-15.4); Immature Granulocytes % 0.7 % (0-4); Lymphocytes # 2.6 K/mcL (0.6-4.6); Lymphocytes % 15.8 %; Mean Corpuscular HGB Conc 31.9 g/dL (31.6-35.5); Mean Corpuscular Hemoglobin 26.9 pg (28.0-33.3); Mean Corpuscular Volume 84.4 fL (83.0-100.0); Monocytes # 1.4 K/mcL (0.0-1.3); Monocytes % 8.4 %; Neutrophils # 11.8 K/mcL (1.6-8.9); Platelet Count 405 K/mcL (140-400); Red Blood Count 4.35 M/mcL (3.82-4.97); Segmented Neutrophils % 72.6 %
[2016-08-08 08:18] LABS: Basophils # 0.2 K/mcL (0.0-0.2)
[2016-08-08] MEDS: Nicotine 21 MG PATCH.TD24 TD SCH (09:51)
[2016-08-08] MEDS: Aspirin 81 MG TAB.CHEW PO SCH (09:51)
[2016-08-08] MEDS: Sulfamethoxazole/Trimeth DS 1 EACH TABLET PO SCH (09:51)
[2016-08-08] MEDS: Insulin LISPRO 300 UNITS/3 ML VIAL SQ SCH ×4 (09:55→22:26)
[2016-08-08 10:18] LABS: Calcium 8.7 mg/dL (8.6-10.8); Potassium 4.5 mEq/L (3.5-4.5)
--- NOTE | 2016-08-08 15:12 | Internal Med Progress Note ---
Date of Encounter: 08/08/16 Time of Encounter: 11:00 - Assessment and plan (1) Leukocytosis Current Visit: Yes Status: Acute Assessment and plan: Etiology not obvious. She was started on IV Cipro through emergency room. I will check urine culture and chest x-ray. Qualifiers: Leukocytosis type: unspecified Qualified Code(s): D72.829 - Elevated white blood cell count, unspecified (2) DM type 2 (diabetes mellitus, type 2) Current Visit: No Status: Chronic Assessment and plan: Hemoglobin A1c was 7.4% on 03/22/2016. Will recheck in a.m. Continue Accu- Cheks with SSI. 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 (4) COPD (chronic obstructive pulmonary disease) Current Visit: No Status: Chronic Assessment and plan: Continue oxygen use. Will change Proventil nebs to prn. Qualifiers: COPD type: unspecified COPD Qualified Code(s): J44.9 - Chronic obstructive pulmonary disease, unspecified - Subjective Interval history: August 08. She has no new complaints. She pain or dyspnea and states she wants to go home. implementation services analyst informed me that her home has been declared a crime scene by the police and she will not be allowed back into the house in the immediate future. She told the social science manager earlier today she was willing to go to [facility] in [place] but at a later visit with the social science manager today she stated she was considering leaving the hospital AMA and denied ever stating she would go to a penitentiary. - Constitutional Vitals: Temp Pulse Resp BP Pulse Ox 97.9 F 92 18 116/73 98 08/08/16 14:13 08/08/16 14:13 08/08/16 14:13 08/08/16 14:13 08/08/16 14:13 Exam: She is lying in bed and appears in no acute distress. She is able to answer questions with appropriate answers. Her left great toe distal phalanx tip shows a 2 mm area of discoloration consistent with hemorrhage and/or skin infarct. Heart is regular without murmurs gallops or ectopics. Lungs are clear anteriorly. Extremities show no pitting edema. Internal Medicine: Result - Labs CBC & Chem 7: 08/08/16 08:03 08/08/16 08:03 Labs: Short CBC 08/08/16 Range/Units 08:03 WBC 16.3 H (4.3-11.1) K/mcL Hgb 11.7 (11.5-15.4) g/dL Hct 36.7 (35.3-44.9) % Plt Count 405 H (140-400) K/mcL Neutrophils # 11.8 H (1.6-8.9) K/mcL BMP 08/08/16 08:03 Sodium 133 L Potassium 4.5 Chloride 104 Carbon Dioxide 20 BUN 12 Creatinine 1.26 H Glucose 192 H Calcium 8.7 - ABG Interpretation ABG results: PT/INR, D-dimer PT 12.0 Seconds (9.4-12.1) 08/07/16 00:35 Consult Discharge Plan - Plan Referrals: NO,PCP [Primary Care Provider] - 1 week
[2016-08-08] MEDS: Albuterol 2.5 MG/3 ML NEBULIZER IH PRN (18:24)
[2016-08-08] MEDS: Ranolazine 500 MG TAB.ER.12H PO SCH (19:34)
[2016-08-09 06:09] LABS: Basophils # 0.2 K/mcL (0.0-0.2); Basophils % 1.1 %; Eosinophils # 0.5 K/mcL (0.0-0.6); Eosinophils % 3.6 %; Hematocrit 41.8 % (35.3-44.9); Immature Granulocytes % 0.9 % (0-4); Lymphocytes # 4.1 K/mcL (0.6-4.6); Lymphocytes % 28.4 %; Mean Corpuscular HGB Conc 31.1 g/dL (31.6-35.5); Mean Corpuscular Hemoglobin 26.5 pg (28.0-33.3); Mean Corpuscular Volume 85.1 fL (83.0-100.0); Mean Platelet Volume 10.5 fL (9.4-12.4); Monocytes # 1.3 K/mcL (0.0-1.3); Monocytes % 9.2 %; Neutrophils # 8.1 K/mcL (1.6-8.9); Platelet Count 396 K/mcL (140-400); Red Blood Count 4.91 M/mcL (3.82-4.97); Red Cell Distribution Width 14.3 % (11.5-14.5); Segmented Neutrophils % 56.8 %
[2016-08-09 06:23] LABS: Calcium 9.9 mg/dL (8.6-10.8)
[2016-08-09] MEDS: Albuterol 2.5 MG/3 ML NEBULIZER IH PRN ×4 (06:58→22:04)
[2016-08-09 07:00] LABS: Potassium 5.8 mEq/L (3.5-4.5)
[2016-08-09] MEDS: Insulin LISPRO 300 UNITS/3 ML VIAL SQ SCH ×4 (07:24→23:42)
[2016-08-09] MEDS: Nicotine 21 MG PATCH.TD24 TD SCH (08:38)
[2016-08-09] MEDS: Isosorbide MONOnitrate (24 HR) 60 MG TAB.ER.24H PO SCH (08:38)
[2016-08-09] MEDS: Aspirin 81 MG TAB.CHEW PO SCH (08:38)
[2016-08-09] MEDS: Metoprolol XL (24 HR) Succ 25 MG TAB.ER.24H PO SCH (08:39)
[2016-08-09] MEDS: Ranolazine 500 MG TAB.ER.12H PO SCH ×2 (08:39→20:07)
[2016-08-09 09:26] LABS: Hemoglobin A1C 7.4 %
--- NOTE | 2016-08-09 12:39 | Internal Med Progress Note ---
Date of Encounter: 08/09/16 Time of Encounter: 12:30 - Assessment and plan (1) Leukocytosis Current Visit: Yes Status: Acute Assessment and plan: August 08. Etiology not obvious. She was started on IV Cipro through emergency room. I will check urine culture and chest x-ray. August 09. Improved. Chest x-ray showed possible pneumonia. Will give Levaquin and lactobacillus. Qualifiers: Leukocytosis type: unspecified Qualified Code(s): D72.829 - Elevated white blood cell count, unspecified (2) DM type 2 (diabetes mellitus, type 2) Current Visit: No Status: Chronic Assessment and plan: August 08. Hemoglobin A1c was 7.4% on 03/22/2016. Will recheck in a.m. Continue Accu-Cheks with SSI. August 09. Hemoglobin A1c stable at 7.4%. Continue Accu-Cheks with SSI. Qualifiers: Diabetes mellitus complication status: with circulatory complication Diabetes mellitus complication detail: with peripheral angiopathy with gangrene Diabetes mellitus commodity broker insulin use: with fdc use Qualified Code( s): E11.52 - Type 2 diabetes mellitus with diabetic peripheral angiopathy with gangrene; Z79.4 - senior care (current) use of insulin (3) CKD (chronic kidney disease) stage 3, GFR 30-59 ml/min Current Visit: No Status: Chronic Assessment and plan: August 08. We will monitor renal indices as needed. August 09. Creatinine improved to 1.13 with estimated GFR 47. Continue present management. (4) COPD (chronic obstructive pulmonary disease) Current Visit: No Status: Chronic Assessment and plan: August 08. Continue oxygen use. Will change Proventil nebs to prn. Qualifiers: COPD type: unspecified COPD Qualified Code(s): J44.9 - Chronic obstructive pulmonary disease, unspecified - Subjective Interval history: August 08. She has no new complaints. She denies pain or dyspnea and states she wants to go home. outpatient services director informed me that her home has been declared a crime scene by the police and she will not be allowed back into the house in the immediate future. She told the social service assistant earlier today she was willing to go to [facility] in [place] but at a later visit with the social service assistant today she stated she was considering leaving the hospital AMA and denied ever stating she would go to a longterm. August 09. She has no new complaints. She states she wants to go home - Constitutional Vitals: Temp Pulse Resp BP Pulse Ox 97.9 F 105 20 99/57 96 08/09/16 11:11 08/09/16 11:11 08/09/16 11:11 08/09/16 11:11 08/09/16 11:11 Exam: She is resting comfortably in bed and appears in no acute distress. Her lungs showed no wheezes crackles or egophony. She has tenderness to touch the tip of the left great toe and slight tenderness in the fifth toe. There is no tenderness on movement at the MCP joint. The right foot shows no tenderness. I reviewed her medications and lab results. Internal Medicine: Result - Labs CBC & Chem 7: 08/09/16 06:00 08/09/16 06:00 Labs: Short CBC 08/09/16 Range/Units 06:00 WBC 14.3 H (4.3-11.1) K/mcL Hgb 13.0 (11.5-15.4) g/dL Hct 41.8 (35.3-44.9) % Plt Count 396 (140-400) K/mcL Neutrophils # 8.1 (1.6-8.9) K/mcL BMP 08/09/16 06:00 Sodium 133 L Potassium 5.8 H D Chloride 104 Carbon Dioxide 16 L BUN 13 Creatinine 1.13 H Glucose 119 H Calcium 9.9 - ABG Interpretation ABG results: PT/INR, D-dimer PT 12.0 Seconds (9.4-12.1) 08/07/16 00:35 - Impressions Impressions Chest X-Ray 08/08/16 15:29 IMPRESSION: Focal opacity in the left lung base laterally could represent an acute pneumonic infiltrate superimposed on mild COPD. Recommend follow-up radiographs to document resolution. D/ / Camron Yeager MD / Camron Yeager MD Interpreting Provider: Camron Yeager MD Consult Discharge Plan - Plan Referrals: Steph Childress, SHIPFITTER [Advanced Practice Nurse] - 1 week (Monday, August 15 @ 1:30 pm) NO,PCP [Primary Care Provider] - 1 week
[2016-08-09] MEDS: levoFLOXacin 500 MG TABLET PO SCH (14:30)
[2016-08-09] MEDS: ALPRAZolam 0.25 MG TABLET PO PRN (15:28)
[2016-08-09] MEDS: Lactobacillus 1 EACH CAP.SPRINK PO SCH (20:07)
[2016-08-09] MEDS: *HR* HYDROcodone/Acet 5/325 mg TABLET PO PRN (20:11)
[2016-08-10 07:22] LABS: Basophils # 0.2 K/mcL (0.0-0.2); Basophils % 1.4 %; Eosinophils # 0.4 K/mcL (0.0-0.6); Eosinophils % 3.9 %; Hematocrit 40.4 % (35.3-44.9); Hemoglobin 12.9 g/dL (11.5-15.4); Immature Granulocytes % 1.2 % (0-4); Lymphocytes # 2.6 K/mcL (0.6-4.6); Lymphocytes % 23.6 %; Mean Corpuscular HGB Conc 31.9 g/dL (31.6-35.5); Mean Corpuscular Hemoglobin 26.5 pg (28.0-33.3); Mean Corpuscular Volume 83.1 fL (83.0-100.0); Mean Platelet Volume 9.8 fL (9.4-12.4); Monocytes % 8.7 %; Neutrophils # 6.7 K/mcL (1.6-8.9); Platelet Count 476 K/mcL (140-400); Red Blood Count 4.86 M/mcL (3.82-4.97); Red Cell Distribution Width 14.3 % (11.5-14.5); Segmented Neutrophils % 61.2 %
[2016-08-10] MEDS: Insulin LISPRO 300 UNITS/3 ML VIAL SQ SCH ×3 (07:29→16:39)
[2016-08-10] MEDS: Albuterol 2.5 MG/3 ML NEBULIZER IH PRN ×3 (08:21→17:22)
[2016-08-10] MEDS: Lactobacillus 1 EACH CAP.SPRINK PO SCH (08:46)
[2016-08-10] MEDS: Ranolazine 500 MG TAB.ER.12H PO SCH (08:46)
[2016-08-10] MEDS: Nicotine 21 MG PATCH.TD24 TD SCH (08:46)
[2016-08-10] MEDS: levoFLOXacin 500 MG TABLET PO SCH (08:46)
[2016-08-10] MEDS: Aspirin 81 MG TAB.CHEW PO SCH (08:46)
[2016-08-10 09:28] LABS: Calcium 9.6 mg/dL (8.6-10.8); Potassium 5.2 mEq/L (3.5-4.5)
[2016-08-10] MEDS: Isosorbide MONOnitrate (24 HR) 60 MG TAB.ER.24H PO SCH (11:19)
[2016-08-10] MEDS: Metoprolol XL (24 HR) Succ 25 MG TAB.ER.24H PO SCH (11:19)
[2016-08-10] MEDS: ALPRAZolam 0.25 MG TABLET PO PRN ×2 (13:00→18:32)
[2016-08-10 14:49] VITALS: BP 103/58
--- NOTE | 2016-08-10 16:56 | Discharge Summary ---
Date of Encounter: 08/10/16 Time of Encounter: 16:45 - Discharge Diagnosis (1) Pneumonia Priority: Primary Status: Acute Qualifiers: Pneumonia type: due to unspecified organism Laterality: left Lung location: lower lobe of lung Qualified Code(s): J18.1 - Lobar pneumonia, unspecified organism (2) DM type 2 (diabetes mellitus, type 2) Priority: Secondary Status: Chronic Qualifiers: Diabetes mellitus complication status: with circulatory complication Diabetes mellitus complication detail: with peripheral angiopathy with gangrene Diabetes mellitus skilled nursing insulin use: with skilled nursing use Qualified Code( s): E11.52 - Type 2 diabetes mellitus with diabetic peripheral angiopathy with gangrene; Z79.4 - senior living (current) use of insulin (3) CKD (chronic kidney disease) stage 3, GFR 30-59 ml/min Priority: Secondary Status: Chronic (4) COPD (chronic obstructive pulmonary disease) Priority: Secondary Status: Chronic Qualifiers: COPD type: unspecified COPD Qualified Code(s): J44.9 - Chronic obstructive pulmonary disease, unspecified - Discharge Medications Home Medications: Atorvastatin Calcium 40 mg PO DAILY 07/08/16 [History] Cilostazol [Pletal] 100 mg PO BID 07/08/16 [History] Isosorbide MONOnitrate (24 HR) [Imdur] 60 mg PO DAILY 07/08/16 [History] Metformin HCl [Glucophage] 500 mg PO BID 07/08/16 [History] Metoprolol XL (24 HR) Succ [Toprol Xl] 25 mg PO DAILY 07/08/16 [History] Ranolazine [Ranexa] 500 mg PO BID 07/08/16 [History] Albuterol Neb [Proventil Neb] 2.5 mg IH Q4HR 08/07/16 [History] Albuterol Sulfate [Ventolin Hfa] 18 gm IH Q6H 08/07/16 [History] Insulin ASPART [Novolog Flexpen] 1 unit SQ BID 08/07/16 [History] Lactobacillus [Culturelle] 1 each PO BID 2 Days 08/10/16 [Rx] Nicotine Patch [Nicoderm] 21 mg TD DAILY patch.td24 08/10/16 [Rx] levoFLOXacin [Levaquin] 250 mg PO DAILY 2 Days 08/10/16 [Rx] Allergies/Adverse Reactions: Allergies Penicillins Allergy (Verified 06/07/16 13:46) Hives Date of admission: 08/07/16 01:48 Primary care physician: PCP NO - Patient Status Disposition: Transfer Other Condition: Good Overall status at discharge: patient is progressing back to baseline - Discharge Instructions - Diet and Activity Activity: resume usual activities as tolerated Diet: advance to your usual diet Hospital course: Ms. Jules is a 71 year old female who was brought to emergency room after family thought she might be confused. Dr. Elam saw her on August 07 and performed history and physical. I assumed care on August 08. It was learned that her home had been declared a crime scene by the police with her son and granddaughter taken into custody for drug-related charges. Significant structural disruptions were done at the house by law-enforcement while searching for drug-related paraphernalia. No one was allowed to move back into the house until a crime scene status would be removed. Workup for leukocytosis showed possible left lower lobe pneumonia. She was treated with Levaquin and leukocytosis resolved by the day of discharge. She remained afebrile. She will continue with antibiotics and probiotics for 2 additional days after discharge. She consistently manifested poor insight and judgment regarding her overall health and safety. She had hallucinations with confused and delusional thinking. She refused to go to SNF. Contact was made with [facility] and she was accepted in transfer the afternoon of August 10. She stated she would refuse to go to behavioral health intervention but was issued a pink slip for mandatory placement there. - Time Spent with Patient Total time spent providing and/or coordinating discharge services: - Constitutional Vitals: Temp Pulse Resp BP Pulse Ox 97.5 F L 87 24 103/58 100 08/10/16 14:40 08/10/16 14:40 08/10/16 14:40 08/10/16 14:40 08/10/16 14:40
[2016-08-11] MEDS ORDERED: levoFLOXacin 250 MG TABLET PO SCH (09:00)
== END 2016-08-10 19:05 | disposition other institution (70) ==
LOC: EMEROOPIK 00:09 → INPPIK 00:09
PROVIDERS: ADMIT Family Medicine; ATTEND Internal Medicine

== ENCOUNTER 2016-09-05 15:00 | Observation (INO) ==
[2016-09-05] MEDS ORDERED: Ipratropium/Albuterol Neb 3 ML IH ONE (15:17)
--- NOTE | 2016-09-05 15:21 | Emergency Department Note ---
Disposition Clinical Impression: COPD (chronic obstructive pulmonary disease) Qualifiers: COPD type: COPD with acute exacerbation Qualified Code(s): J44.1 - Chronic obstructive pulmonary disease with (acute) exacerbation Leukocytosis Qualifiers: Leukocytosis type: other Qualified Code(s): D72.828 - Other elevated white blood cell count Disposition: Admitted As Inpatient Condition: Good Referrals: NO,PCP [Non-Partnered Physician] - Forms: Work/School Release, ED Satisfaction Letter Time of Disposition: 17:46 General Adult HPI - General Chief complaint: ED General Medical Stated complaint: General Illness Time Seen by Provider: 09/05/16 15:15 Source: patient, EMS Mode of arrival: EMS Limitations: no limitations Nursing Notes Reviewed: Yes Vital Signs Reviewed: Yes - History of Present Illness HPI Narrative: 71-year-old female brought in with Adult Protective Services because of concerns that she is living in an unsafe unclean environment. The patient has COPD. She was just hospitalized in a adult geriatric psychiatric unit at [facility] last week. Apparently she was discharged to go to a [place]. There was apparently some problem with the paperwork and she was not accepted and therefore was dropped off at a family member's home. She has been there since then. Active services was not aware of this until they started receiving phone calls regarding the patient. They went over and checked on her and called the squad to bring her in for placement. care services manager aware that the patient is here and is looking into placement at this time. The patient is chronically short of breath, she is no more short of breath and usual. She has a red area on her left forearm and a sore on the tip of her left great toe. She has no other complaints. Pain Scale: 8 Associated symptoms: Reports: shortness of breath (Chronic) - Related Data Home Medications Medication Instructions Recorded Confirmed Atorvastatin Calcium 40 mg PO DAILY 07/08/16 09/03/16 Cilostazol [Pletal] 100 mg PO BID 07/08/16 09/03/16 Metformin HCl [Glucophage] 850 mg PO BID 07/08/16 09/03/16 Metoprolol XL (24 HR) Succ [Toprol 25 mg PO DAILY 07/08/16 09/03/16 Xl] Albuterol Sulfate [Ventolin Hfa] 18 gm IH Q4H PRN 08/07/16 09/03/16 Aspirin [Lo-Dose Aspirin EC] 81 mg PO DAILY 09/03/16 09/03/16 Buspirone HCl [Buspar] 5 mg PO TID 09/03/16 09/03/16 Citalopram 10 mg PO DAILY 09/03/16 09/03/16 Digoxin [Lanoxin] 0.125 mg PO DAILY 09/03/16 09/03/16 Ipratropium/Albuterol Neb [Duoneb] 3 ml IH Q6HR PRN 09/03/16 09/03/16 Ondansetron HCl [Zofran] 4 mg PO Q4H PRN 09/03/16 09/03/16 predniSONE [PredniSONE] 60 mg PO DAILY 09/03/16 09/03/16 Previous Rx's Medication Instructions Recorded Lactobacillus [Culturelle] 1 each PO BID 2 Days 08/10/16 Nicotine Patch [Nicoderm] 21 mg TD DAILY patch.td24 08/10/16 Allergies Allergy/AdvReac Type Severity Reaction Status Date / Time Penicillins Allergy Hives Verified 06/07/16 13:46 All systems ED: reviewed and negative except as stated. Constitutional: Denies: fever, chills ENT ED: Denies: ear pain, throat pain Cardiovascular: Denies: chest pain, palpitations Respiratory: Reports: dyspnea (Chronic). Denies: cough Gastrointestinal: Denies: abdominal pain, nausea, vomiting Integumentary: Reports: as per HPI Neurological: Denies: weakness, numbness, paresthesias Past Medical History - Past Medical History Medical history: Reports: arthritis, asthma, COPD, CVA, diabetes, GERD, hyperlipidemia, hypertension, myocardial infarction, osteoporosis, peripheral artery disease, other Surgical history: Reports: TRISTON/BSO, other (T&A) Psychiatric history: Reports: anxiety, depression, panic disorder WARE FINISHER history: Reports: no WARE FINISHER history - Social History Smoking Status: Current every day smoker Smokeless Tobacco Status: No Alcohol use: Reports: none Drug use: Reports: none Physical Exam - General Limitations: no limitations General appearance: alert, in no apparent distress - Head Head exam: atraumatic, normocephalic - Eye Eye exam: Present: PERRL, EOMI. Absent: scleral icterus, conjunctival injection - ENT ENT exam: normal oropharynx, mucous membranes moist - Neck Neck exam: Present: normal inspection, full ROM, trachea midline. Absent: tenderness, lymphadenopathy - Respiratory Respiratory exam: Present: wheezes (Rare bilateral expiratory), prolonged expiratory phase. Absent: respiratory distress - Cardiovascular Cardiovascular exam: Present: regular rate, normal rhythm, normal heart sounds - Abdominal Exam Abdominal exam: Present: soft, Non-Tender - Extremities Exam Extremities exam: Present: normal capillary refill, other (1 cm dried eschar on the tip of the left great toe. A 2 x 2 centimeter ecchymotic area on the posterior left mid forearm with some minimal surrounding erythema.) - Neurological Exam Neurological exam: Present: alert, oriented X3 - Psychiatric Psychiatric exam: Present: normal affect, normal mood - Skin Skin exam: Present: warm, dry Course - Reevaluation(s) Reevaluation #1: Discussed with social economist. [place] working [place]. They will not accept her until tomorrow, they need to review criteria for placement. I spoke with Dr. Candelario. He will accept her for an observation admission. Time: 17:44 Vital Signs Temperature 98.5 F 09/05/16 15:02 Pulse Rate 102 09/05/16 15:02 Respiratory Rate 18 09/05/16 15:02 Blood Pressure 117/70 09/05/16 15:02 O2 Sat by Pulse Oximetry 97 09/05/16 15:02 Temperature 98.5 F 09/05/16 15:02 Pulse Rate 103 09/05/16 16:34 Respiratory Rate 20 09/05/16 16:34 Blood Pressure 105/63 09/05/16 16:34 O2 Sat by Pulse Oximetry 97 09/05/16 16:34 Oxygen Delivery Oxygen Delivery Nasal Cannula Medical Decision Making - [facility] Narrative Medical decision making narrative: care services manager are given over to see the patient and is working on placement issue. The areas of concern will be cleansed. Baseline labs will be obtained for medical clearance. Patient has COPD. She has an elevated white blood cell count, likely related to her steroid use. There is no evidence of pneumonia or UTI. She is in an unsafe environment, she is not taking her medications, she needs placement in a [place]. She is here with Adult Protective Services. Dr. Candelario is willing to observe her until they can review criteria for [place] placement tomorrow. - Lab Data Lab results reviewed: Yes I reviewed the patient's lab results. Result diagrams: 09/05/16 16:50 09/05/16 15:40 Lab Results 09/05/16 09/05/16 09/05/16 Range/Units 15:40 16:50 17:03 WBC 22.1 H (4.3-11.1) K/mcL RBC 4.37 (3.82-4.97) M/mcL Hgb 11.6 (11.5-15.4) g/dL Hct 36.1 (35.3-44.9) % MCV 82.6 L (83.0-100.0) fL MCH 26.5 L (28.0-33.3) pg MCHC 32.1 (31.6-35.5) g/dL RDW 16.4 H (11.5-14.5) % Plt Count 471 H (140-400) K/mcL MPV 9.3 L (9.4-12.4) fL Immature Gran % 1.3 (0-4) % Seg Neutrophils % 75.7 % Lymphocytes % 16.3 % Monocytes % 5.9 % Eosinophils % 0.5 % Basophils % 0.3 % Neutrophils # 16.7 H (1.6-8.9) K/mcL Lymphocytes # 3.6 (0.6-4.6) K/mcL Monocytes # 1.3 (0.0-1.3) K/mcL Eosinophils # 0.1 (0.0-0.6) K/mcL Basophils # 0.1 (0.0-0.2) K/mcL Sodium 135 L (136-145) mEq/L Potassium 3.9 (3.5-4.5) mEq/L Chloride 105 (98-109) mEq/L Carbon Dioxide 15 L (19-29) mEq/L BUN 15 (7-20) mg/dL Creatinine 0.93 (0.57-1.11) mg/dL Est GFR ( Amer) > 60 (> 60) Est GFR (Non-Af Amer) 59 L (> 60) BUN/Creatinine Ratio 16 (6-26) Glucose 123 H (70-99) mg/dL Calculated Osmolality 282 (280-300) Calcium 9.3 (8.6-10.8) mg/dL Total Bilirubin 0.6 (0.2-1.2) mg/dL AST 18 (5-34) Units/L ALT 43 (0-55) Units/L Alkaline Phosphatase 100 (38-126) Units/L Serum Total Protein 6.6 (6.0-8.3) g/dL Albumin 3.6 (3.5-5.0) g/dL Globulin 3.0 (2.4-3.5) g/dL Albumin/Globulin Ratio 1.2 (1.1-2.2) Urine Color Yellow (Yellow) Urine Clarity Clear (Clear) Urine pH 7.0 (5.0-8.0) pH Units Ur Specific Lyons 1.015 (1.010-1.025) Urine Protein Negative (Neg-Trace) mg/dL Urine Glucose (UA) Normal (Normal) mg/dL Urine Ketones 15 H (Negative) mg/dL Urine Blood Negative (Negative) Urine Nitrite Negative (Negative) Urine Bilirubin Negative (Negative) Urine Urobilinogen Normal (Normal) mg/dL Ur Leukocyte Esterase Negative (Negative) Ur Culture Indicated? NO (NO)
[2016-09-05 16:25] LABS: Alanine Aminotransferase 43 Units/L (0-55); Albumin 3.6 g/dL (3.5-5.0); Albumin/Globulin Ratio 1.2 (1.1-2.2); Alkaline Phosphatase 100 Units/L (38-126); Aspartate Amino Transferase 18 Units/L (5-34); BUN/Creatinine Ratio 16 (6-26); Bilirubin,Total 0.6 mg/dL (0.2-1.2); Blood Urea Nitrogen 15 mg/dL (7-20); Calcium 9.3 mg/dL (8.6-10.8); Carbon Dioxide 15 mEq/L (19-29); Chloride 105 mEq/L (98-109); Glucose 123 mg/dL (70-99); Osmolality,Calculated 282 (280-300); Potassium 3.9 mEq/L (3.5-4.5); Sodium 135 mEq/L (136-145); Total Protein 6.6 g/dL (6.0-8.3); eGFR For African Americans > 60 (> 60); eGFR For Non-African Americans 59 (> 60)
[2016-09-05] MEDS ORDERED: *HR* LORazepam 0.5 MG TABLET PO ONE (16:46)
[2016-09-05 17:01] LABS: Basophils # 0.1 K/mcL (0.0-0.2); Basophils % 0.3 %; Eosinophils # 0.1 K/mcL (0.0-0.6); Eosinophils % 0.5 %; Hematocrit 36.1 % (35.3-44.9); Hemoglobin 11.6 g/dL (11.5-15.4); Immature Granulocytes % 1.3 % (0-4); Lymphocytes # 3.6 K/mcL (0.6-4.6); Lymphocytes % 16.3 %; Mean Corpuscular HGB Conc 32.1 g/dL (31.6-35.5); Mean Corpuscular Hemoglobin 26.5 pg (28.0-33.3); Mean Corpuscular Volume 82.6 fL (83.0-100.0); Mean Platelet Volume 9.3 fL (9.4-12.4); Monocytes # 1.3 K/mcL (0.0-1.3); Monocytes % 5.9 %; Neutrophils # 16.7 K/mcL (1.6-8.9); Platelet Count 471 K/mcL (140-400); Red Blood Count 4.37 M/mcL (3.82-4.97); Red Cell Distribution Width 16.4 % (11.5-14.5); Segmented Neutrophils % 75.7 %
[2016-09-05 17:10] LABS: Bilirubin,Urine Negative (Negative); Blood,Urine Negative (Negative); Clarity,Urine Clear (Clear); Color,Urine Yellow (Yellow); Glucose,Urine (UA) Normal (Normal); Ketones,Urine 15 mg/dL (Negative); Leukocyte Esterase,Urine Negative (Negative); Nitrite,Urine Negative (Negative); Protein,Urine Negative (Neg-Trace); Specific Gravity,Urine 1.015 (1.010-1.025); Urobilinogen,Urine Normal (Normal)
[2016-09-05] MEDS ORDERED: Ondansetron ODT 4 MG TAB.RAPDIS PO PRN (19:25)
[2016-09-05] MEDS ORDERED: Naloxone 0.4 MG/ML INJ IVP PRN (19:25)
[2016-09-05] MEDS ORDERED: *HR* Metformin 850 MG TABLET PO SCH (21:00)
[2016-09-05] MEDS: Lactobacillus 1 EACH CAP.SPRINK PO SCH (21:19)
[2016-09-05] MEDS: Ipratropium/Albuterol Neb 3 ML IH SCH (21:22)
[2016-09-06] MEDS: Ipratropium/Albuterol Neb 3 ML IH SCH ×4 (00:25→07:36)
[2016-09-06] MEDS ORDERED: Metoprolol XL (24 HR) Succ 25 MG TAB.ER.24H PO SCH (09:00)
[2016-09-06] MEDS ORDERED: Nicotine 21 MG PATCH.TD24 TD SCH (09:00)
[2016-09-06] MEDS ORDERED: predniSONE 20 MG TABLET PO SCH (09:00)
[2016-09-06] MEDS ORDERED: *HR* Digoxin 0.125 MG TABLET PO SCH (09:00)
[2016-09-06] MEDS ORDERED: Albuterol 2.5 MG/3 ML NEBULIZER IH PRN (10:12)
--- NOTE | 2016-09-06 11:18 | Internal Med History&Physical ---
Date of Encounter: 09/06/16 Time of Encounter: 10:55 Assessment and Plan (1) COPD (chronic obstructive pulmonary disease) Current visit: No Status: Chronic She has been encouraged to discontinue smoking but has refused in the past. Will continue supplemental oxygen Qualifiers: COPD type: unspecified COPD Qualified Code(s): J44.9 - Chronic obstructive pulmonary disease, unspecified (2) CKD (chronic kidney disease) stage 3, GFR 30-59 ml/min Current visit: No Status: Chronic Monitor renal indices as needed (3) Leukocytosis Current visit: Yes Status: Chronic Date of onset unknown. She has had leukocytosis present on most CBCs over the past 3 years. Qualifiers: Leukocytosis type: unspecified Qualified Code(s): D72.829 - Elevated white blood cell count, unspecified (4) DM type 2 (diabetes mellitus, type 2) Current visit: No Status: Chronic Hemoglobin A1c was 7.4% on 08/09/2016. Continue Glucophage and Accu-Cheks with SSI. Qualifiers: Diabetes mellitus complication status: with circulatory complication Diabetes mellitus complication detail: with peripheral angiopathy with gangrene Diabetes mellitus custodial insulin use: with custodial use Qualified Code( s): E11.52 - Type 2 diabetes mellitus with diabetic peripheral angiopathy with gangrene; Z79.4 - jail (current) use of insulin (5) Diastolic heart failure Current visit: No Status: Chronic BN peptide was 142 on 08/08/2016. Continue Lanoxin and Toprol. Qualifiers: Heart failure chronicity: chronic Qualified Code(s): I50.32 - Chronic diastolic (congestive) heart failure (6) Weight loss Current visit: Yes Status: Acute Etiology not obvious. Will check TSH in a.m. Will give Remeron for appetite stimulation and possible depression. Internal Medicine - H&P: HPI Chief complaint: Failure to thrive Admitted From: Home Plans for Post Hospital Care: Transfer Group Home Facility History of present illness: Ms. Jules is a 71 year old female who was brought emergency room after local authorities called a squad to bring her to emergency room since they felt she was not in a safe living environment. She had been hospitalized at [facility] adult geriatric psychiatric unit from August 10 until release approximately 1 week ago. She had been discharged to a [facility] SNF but remained there only a very brief time and then return to her home environment. She had multiple contacts with healthcare services in the few days since her return home and it was felt she was not safe to be living in the present home environment. She was brought back to [facility] and evaluated and admitted to observation bed until further disposition could be made. Past Med Surg Social Fam HX - Past Medical History Medical history: arthritis, asthma, COPD, CVA, diabetes, GERD, hyperlipidemia, hypertension, myocardial infarction, osteoporosis, peripheral artery disease, other Psychiatric history: anxiety, depression, panic disorder - Past Surgical History Surgical History: TRISTON/BSO, other - Social History Smoking Status: Current every day smoker Smokeless Tobacco Status: No Alcohol use: none Drug use: none - Family History Father Living Status: Hx Family Cardiac Disorders: Yes (Heart attack and stroke) Hx Family Endocrine Disorder: Yes (Diabetes) Mother Family Member Ethnicity: Non- Living Status: Hx Family Cardiac Disorders: Yes Hx Family Respiratory Disorders: Yes Hx Family Cancer: Yes Hx Family GI Disorders: Yes Internal Medicine - H&P: Meds Atorvastatin Calcium 40 mg PO DAILY 07/08/16 [History] Cilostazol [Pletal] 100 mg PO BID 07/08/16 [History] Metformin HCl [Glucophage] 850 mg PO BID 07/08/16 [History] Metoprolol XL (24 HR) Succ [Toprol Xl] 25 mg PO DAILY 07/08/16 [History] Albuterol Sulfate [Ventolin Hfa] 18 gm IH Q4H PRN 08/07/16 [History] Lactobacillus [Culturelle] 1 each PO BID 2 Days 08/10/16 [Rx] Nicotine Patch [Nicoderm] 21 mg TD DAILY patch.td24 08/10/16 [Rx] Aspirin [Lo-Dose Aspirin EC] 81 mg PO DAILY 09/03/16 [History] Buspirone HCl [Buspar] 5 mg PO TID 09/03/16 [History] Citalopram 10 mg PO DAILY 09/03/16 [History] Digoxin [Lanoxin] 0.125 mg PO DAILY 09/03/16 [History] Ipratropium/Albuterol Neb [Duoneb] 3 ml IH Q6HR PRN 09/03/16 [History] Ondansetron HCl [Zofran] 4 mg PO Q4H PRN 09/03/16 [History] predniSONE [PredniSONE] 60 mg PO DAILY 09/03/16 [History] Allergies Penicillins Allergy (Verified 06/07/16 13:46) Hives All Systems PM: A 10-system review of systems was performed and is negative for pertinent findings except as documented above in the HPI. Review of systems: Review of systems from her March 2016 [facility] hospitalization were reviewed and revised as below. Gen.: Her weight has decreased from 63.049 kg at the 03/20/2016 hospitalization to 57.969 kg today Cardiovascular: She has a history of hypertension. She had an echocardiogram done during the April 2014 [facility] stay which showed LVEF of 65-70% with mild LV diastolic dysfunction and normal systolic function. There was mild aortic regurgitation. She had possible NSTEMI at [facility] hospitalization April 2014 but declined further workup such as heart catheterization. She was hospitalized November 2015 at [facility] and had borderline high troponin. She left AMA before cardiology consultation could be done. She also refused colonoscopy at an earlier [facility] hospitalization. Respiratory: She has smoked since age 12 up to 3 packs per day. She wears oxygen 24/7 except taking it off to smoke. She had PFTs at [facility] approximately June 2013 and was diagnosed with COPD/emphysema. A chest CT was done May 2015 which showed severe COPD. GI: She has GERD but denies disorders of her liver gallbladder or exocrine pancreas. She has not had EGD or colonoscopy. : No history of hematuria dysuria or kidney stones Neurologic: No history of seizures. She is uncertain if she has had a stroke in the past. Endocrine: She has hyperlipidemia and diabetes but no known thyroid disease Hematology/oncology: she denies blood disorders or cancers. She has had microcytosis. She has history of B12 and folate deficiency Psychiatric: She has anxiety and depression Musk skeletal: She has DJD and chronic low back pain but no known gout. - Constitutional Vitals: Temp Pulse Resp BP Pulse Ox 97.8 F 76 18 154/59 99 09/06/16 10:27 09/06/16 10:27 09/06/16 10:09/06/16 10:09/06/16 07:00 Exam: Gen.: She is well developed well-nourished female sitting in chair who appears in no acute distress HEENT: Head is atraumatic and normocephalic. Eyes: EOMI. There is no scleral icterus. Mouth: Mucosa is moist. Neck: Supple and nontender. There is no thyromegaly or adenopathy noted. Heart: Regular without murmurs gallops or ectopics Lungs: No wheezes or crackles are heard. Abdomen: Soft and nontender. No masses or guarding are noted. Extremities: There is no cyanosis edema or clubbing noted. Dorsalis pedis and posttibial pulses are trace palpable bilaterally. Her feet are warm to touch. She has a healing shallow ulcer with callus on the tip of the left great toe and the left fourth toe. She has mild DJD changes of her hands. Neurologic: Mental status: She is able to answer questions and appears to be a reliable historian. Cranial nerves: Smile is symmetric. Forehead wrinkles bilaterally. Tongue protrudes midline. EOMI. Motor: There is no pronator drift. Cerebellar: Finger to nose is intact bilaterally. Skin: Warm and dry Internal Med - H&P Results - Labs CBC & Chem 7: 09/05/16 16:50 09/05/16 15:40
[2016-09-06] MEDS: Lactobacillus 1 EACH CAP.SPRINK PO SCH (13:44)
[2016-09-06 14:15] VITALS: BP 115/56
[2016-09-06] MEDS ORDERED: ALPRAZolam 0.25 MG TABLET PO PRN (15:19)
--- NOTE | 2016-09-06 15:58 | Discharge Summary ---
Date of Encounter: 09/06/16 Time of Encounter: 15:45 - Discharge Diagnosis (1) COPD (chronic obstructive pulmonary disease) Priority: Primary Status: Chronic Qualifiers: COPD type: unspecified COPD Qualified Code(s): J44.9 - Chronic obstructive pulmonary disease, unspecified (2) CKD (chronic kidney disease) stage 3, GFR 30-59 ml/min Priority: Secondary Status: Chronic (3) Leukocytosis Priority: Secondary Status: Chronic Qualifiers: Leukocytosis type: unspecified Qualified Code(s): D72.829 - Elevated white blood cell count, unspecified (4) DM type 2 (diabetes mellitus, type 2) Priority: Secondary Status: Chronic Qualifiers: Diabetes mellitus complication status: with circulatory complication Diabetes mellitus complication detail: with peripheral angiopathy with gangrene Diabetes mellitus terminal operator insulin use: with terminal operator use Qualified Code( s): E11.52 - Type 2 diabetes mellitus with diabetic peripheral angiopathy with gangrene; Z79.4 - half-way (current) use of insulin (5) Diastolic heart failure Priority: Secondary Status: Chronic Qualifiers: Heart failure chronicity: chronic Qualified Code(s): I50.32 - Chronic diastolic (congestive) heart failure (6) Weight loss Priority: Secondary Status: Acute - Discharge Medications Prescriptions: ALPRAZolam [Xanax 0.25 MG Tablet] 0.25 mg PO Q6H PRN #120 tab PRN Reason: Anxiety Home Medications: Cilostazol [Pletal] 100 mg PO BID 07/08/16 [History] Metoprolol XL (24 HR) Succ [Toprol Xl] 25 mg PO DAILY 07/08/16 [History] Albuterol Sulfate [Ventolin Hfa] 18 gm IH Q4H PRN 08/07/16 [History] Nicotine Patch [Nicoderm] 21 mg TD DAILY patch.td24 08/10/16 [Rx] Aspirin [Lo-Dose Aspirin EC] 81 mg PO DAILY 09/03/16 [History] Citalopram 10 mg PO DAILY 09/03/16 [History] Digoxin [Lanoxin] 0.125 mg PO DAILY 09/03/16 [History] Ipratropium/Albuterol Neb [Duoneb] 3 ml IH Q6HR PRN 09/03/16 [History] Ondansetron HCl [Zofran] 4 mg PO Q4H PRN 09/03/16 [History] ALPRAZolam [Xanax 0.25 MG Tablet] 0.25 mg PO Q6H PRN #120 tab 09/06/16 [Rx] Mirtazapine [Remeron] 15 mg PO HS tab 09/06/16 [Rx] Allergies/Adverse Reactions: Allergies Penicillins Allergy (Verified 06/07/16 13:46) Hives Date of admission: 09/05/16 19:20 Primary care physician: Steph Childress CNP - Patient Status Disposition: Transfer SNF Condition: Good Functional capacity at discharge: uses cane/walker - Discharge Instructions - Diet and Activity Activity: as per physical therapy Diet: regular diet Hospital course: Ms. Jules is a 71 year old female who was brought emergency room after local authorities called a squad to bring her to emergency room since they felt she was not in a safe living environment. She had been hospitalized at [facility] adult geriatric psychiatric unit from August 10 until release approximately 1 week ago. She had been discharged to a [facility] SNF but remained there only a very brief time and then return to her home environment. She had multiple contacts with healthcare services in the few days since her return home and it was felt she was not safe to be living in the present home environment. She was brought back to [facility] and evaluated and admitted to observation bed until further disposition could be made. Initial orders were written by the emergency room physician. I saw her on September 06 and performed history and physical. Social service consult was made. APS was contacted and the stamping die maker assigned her to senior care placement. She will be transferred to [facility] for ongoing care needs. - Time Spent with Patient Total time spent providing and/or coordinating discharge services: - Constitutional Vitals: Temp Pulse Resp BP Pulse Ox 98.4 F 67 18 115/56 100 09/06/16 14:12 09/06/16 14:12 09/06/16 14:12 09/06/16 14:12 09/06/16 14:12
--- NOTE | 2016-09-06 16:02 | Physician Discharge Referral ---
ExtendedCare Referral Info Transfer To: [facility] Provider in Charge: [employer] Provider in Charge after Transfer: PCP ([employer]) - Diagnosis (1) COPD (chronic obstructive pulmonary disease) Priority: Primary Status: Chronic (2) CKD (chronic kidney disease) stage 3, GFR 30-59 ml/min Priority: Secondary Status: Chronic (3) Leukocytosis Priority: Secondary Status: Chronic (4) DM type 2 (diabetes mellitus, type 2) Priority: Secondary Status: Chronic (5) Diastolic heart failure Priority: Secondary Status: Chronic (6) Weight loss Priority: Secondary Status: Acute Prognosis: Fair - Transfer Medications Prescriptions: ALPRAZolam [Xanax 0.25 MG Tablet] 0.25 mg PO Q6H PRN #120 tab PRN Reason: Anxiety Home Medications: Cilostazol [Pletal] 100 mg PO BID 07/08/16 [History] Metoprolol XL (24 HR) Succ [Toprol Xl] 25 mg PO DAILY 07/08/16 [History] Albuterol Sulfate [Ventolin Hfa] 18 gm IH Q4H PRN 08/07/16 [History] Nicotine Patch [Nicoderm] 21 mg TD DAILY patch.td24 08/10/16 [Rx] Aspirin [Lo-Dose Aspirin EC] 81 mg PO DAILY 09/03/16 [History] Citalopram 10 mg PO DAILY 09/03/16 [History] Digoxin [Lanoxin] 0.125 mg PO DAILY 09/03/16 [History] Ipratropium/Albuterol Neb [Duoneb] 3 ml IH Q6HR PRN 09/03/16 [History] Ondansetron HCl [Zofran] 4 mg PO Q4H PRN 09/03/16 [History] ALPRAZolam [Xanax 0.25 MG Tablet] 0.25 mg PO Q6H PRN #120 tab 09/06/16 [Rx] Mirtazapine [Remeron] 15 mg PO HS tab 09/06/16 [Rx] Allergies/Adverse Reactions: Allergies Penicillins Allergy (Verified 06/07/16 13:46) Hives - Respiratory Orders Oxygen / L per min (2 l/m NC) Smoking Cessation: Smoking cessation has been advised. For more information, call the [place] Tobacco Quit Line at 8-843-BYOM-NOW. - Mobility Orders Ambulate - Rehabiliation Orders Rehab Potential: Fair Rehab Orders: Evaluation for Physical Therapy, Evaluation for Occupational Therapy CERTIFICATION: I certify that the transfer of the above named patient to an Extended Care Facility is necessary for the continuing treatment of the diagnosis listed. The above information is true and accurate reflection of patient's current condition. Confidential - Redisclosure prohibited without a patient's written consent.
--- NOTE | 2016-09-06 17:41 | Electrocardiograph Report ---
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
[2016-09-06] MEDS ORDERED: Mirtazapine 15 MG TABLET PO SCH (21:00)
== END 2016-09-06 16:35 ==
LOC: INPPIK 15:00 → EMEROOPIK 15:00 → INPPIK 19:15
PROVIDERS: ADMIT Emergency Medicine; ATTEND Internal Medicine

== ENCOUNTER 2016-11-01 19:57 | Inpatient (IN) ==
[2016-11-01] MEDS ORDERED: Ipratropium/Albuterol Neb 3 ML IH ONE ×2 (20:00→22:01)
[2016-11-01] MEDS ORDERED: Ondansetron 4 MG/2 ML VIAL IVP ONE (20:00)
[2016-11-01] MEDS ORDERED: *HR* Morphine 2 MG/ML SYRINGE IVP ONE (20:00)
[2016-11-01] MEDS ORDERED: Albuterol 2.5 MG/3 ML NEBULIZER IH ONE ×2 (20:00→22:01)
[2016-11-01] MEDS ORDERED: methylPREDNISolone 125 MG/2 ML VIAL IVP ONE (20:00)
--- NOTE | 2016-11-01 20:04 | Emergency Department Note ---
Disposition Clinical Impression: COPD exacerbation CHF (congestive heart failure) Qualifiers: Congestive heart failure type: systolic Congestive heart failure chronicity: acute Qualified Code(s): I50.21 - Acute systolic (congestive) heart failure Disposition: Admitted As Inpatient Condition: Good Referrals: NONE,PCP [Primary Care Provider] - Forms: ED Satisfaction Letter Time of Disposition: 01:16 SOB HPI - General Chief Complaint: ED Shortness of Breath/Dyspnea Stated Complaint: difficulty breathing Time Seen by Provider: 11/01/16 20:00 Source: patient, EMS Mode of arrival: EMS Limitations: no limitations Nursing Notes Reviewed: Yes Vital Signs Reviewed: Yes - History of Present Illness 71-year-old female with history of severe COPD, on oxygen, lives in a longterm, complaining of increased difficulty breathing since yesterday evening. Chest some sharp pain over her left anterior chest. She denies increased cough. No fever. No arm or neck pain. Her O2 saturations were in the 70s on 2 L reportedly. She was placed on a mask in route and her O2 saturations were in the 80s. Pt Subjective Complaint: shortness of breath Onset (ago): day(s) (1) Context: other (History of severe COPD) Severity: severe Consistency/Duration: constant Improves with: nothing Worsens with: exertion, movement Known history of: COPD Associated symptoms: Reports: chest pain. Denies: fever, cough, diaphoresis Treatment prior to arrival: oxygen, bronchodilator Cough present: No - Related Data Home oxygen amount: 2 liters Home Medications Medication Instructions Recorded Confirmed Cilostazol [Pletal] 100 mg PO BID 07/08/16 09/03/16 Metoprolol XL (24 HR) Succ [Toprol 25 mg PO DAILY 07/08/16 09/03/16 Xl] Albuterol Sulfate [Ventolin Hfa] 18 gm IH Q4H PRN 08/07/16 09/03/16 Aspirin [Lo-Dose Aspirin EC] 81 mg PO DAILY 09/03/16 09/03/16 Citalopram 10 mg PO DAILY 09/03/16 09/03/16 Digoxin [Lanoxin] 0.125 mg PO DAILY 09/03/16 09/03/16 Ipratropium/Albuterol Neb [Duoneb] 3 ml IH Q6HR PRN 09/03/16 09/03/16 Ondansetron HCl [Zofran] 4 mg PO Q4H PRN 09/03/16 09/03/16 Previous Rx's Medication Instructions Recorded Nicotine Patch [Nicoderm] 21 mg TD DAILY patch.td24 08/10/16 ALPRAZolam [Xanax 0.25 MG Tablet] 0.25 mg PO Q6H PRN #120 tab 09/06/16 Mirtazapine [Remeron] 15 mg PO HS tab 09/06/16 Allergies Allergy/AdvReac Type Severity Reaction Status Date / Time Penicillins Allergy Hives Verified 11/01/16 20:13 lorazepam [From Ativan] AdvReac Rash Verified 11/01/16 20:13 All systems ED: reviewed and negative except as stated. Constitutional: Denies: fever, chills ENT ED: Denies: ear pain, throat pain Cardiovascular: Reports: chest pain Respiratory: Reports: dyspnea, wheezes. 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 Absent: scleral icterus, conjunctival injection - ENT ENT exam: normal oropharynx, mucous membranes moist, TM's normal bilaterally - Neck Neck exam: Present: normal inspection, full ROM, trachea midline. Absent: tenderness, lymphadenopathy - Chest Chest inspection: Present: normal inspection, symmetric chest wall rise - Respiratory Respiratory exam: Present: respiratory distress (Moderate), wheezes (Bilateral diffuse expiratory), prolonged expiratory phase. Absent: accessory muscle use - Cardiovascular Cardiovascular exam: Present: regular rate, tachycardia. Absent: systolic murmur, diastolic murmur - Abdominal Exam Abdominal exam: Present: soft, Non-Tender - Extremities Exam Extremities exam: Present: normal capillary refill. Absent: tenderness, pedal edema, calf tenderness - Neurological Exam Neurological exam: Present: alert, oriented X3. Absent: motor sensory deficit - Psychiatric Psychiatric exam: Present: agitated, anxious - Skin Skin exam: Present: warm, dry, intact, normal color Course - Reevaluation(s) Reevaluation #1: Somewhat improved, her O2 saturations are in the mid 80s. She is arousable and says she feels somewhat better. I am going to order additional hand-held nebulizers, get a blood gas, and reevaluate her. Time: 22:00 Reevaluation #2: Patient remained stable, she still has some moderate bronchospasm. She is improved from presentation. She is clinically not at her baseline. I spoke with Dr. Candelario. He is agreeable with observation admission for further treatment. Time: 01:15 Vital Signs Temperature 98.3 F 11/01/16 19:59 Pulse Rate 67 11/01/16 19:59 Respiratory Rate 40 11/01/16 19:59 Blood Pressure 104/57 11/01/16 19:59 O2 Sat by Pulse Oximetry 95 11/01/16 19:59 Temperature 98.3 F 11/01/16 19:59 Pulse Rate 76 11/01/16 23:56 Respiratory Rate 20 11/01/16 23:56 Blood Pressure 103/43 11/01/16 23:56 O2 Sat by Pulse Oximetry 95 11/01/16 23:56 Oxygen Delivery Oxygen Delivery Nasal Cannula Shortness of Breath/Dyspnea - [facility] Narrative Medical decision making narrative: The patient has significant COPD and certainly is having an exacerbation of her COPD. She has some changes on her chest x-ray along with her elevated BNP which would suggest that she has some superimposed congestive heart failure. She was treated with nebulizers, Solu-Medrol, and Lasix. She is improving. She is not back at her baseline and will require hospitalization. Dr. Pelaez agrees to admit to a telemetry bed. - Differential Diagnosis Likely: acute exacerbation of chronic obstructive airways disease, congestive heart failure, pneumonia, pulmonary embolism, pneumothorax, arrhythmia - Lab Data Result diagrams: 11/01/16 20:32 11/01/16 20:32 Lab Results 11/01/16 11/01/16 11/01/16 Range/Units 20:32 20:32 20:32 WBC 21.5 H (4.3-11.1) K/mcL RBC 4.16 (3.82-4.97) M/mcL Hgb 11.2 L (11.5-15.4) g/dL Hct 35.3 (35.3-44.9) % MCV 84.9 (83.0-100.0) fL MCH 26.9 L (28.0-33.3) pg MCHC 31.7 (31.6-35.5) g/dL RDW 17.0 H (11.5-14.5) % Plt Count 312 (140-400) K/mcL MPV 10.9 (9.4-12.4) fL Immature Gran % 0.8 (0-4) % Seg Neutrophils % 79.8 % Lymphocytes % 9.6 % Monocytes % 9.1 % Eosinophils % 0.0 % Basophils % 0.7 % Neutrophils # 17.2 H (1.6-8.9) K/mcL Lymphocytes # 2.1 (0.6-4.6) K/mcL Monocytes # 2.0 H (0.0-1.3) K/mcL Eosinophils # 0.0 (0.0-0.6) K/mcL Basophils # 0.2 (0.0-0.2) K/mcL ABG pH (7.32-7.45) pH Units ABG pCO2 (35-45) mmHg ABG pO2 (85-104) mmHg ABG HCO3 (21-27) mEq/L ABG Total CO2 (20-26) mEq/L ABG O2 Saturation (95-98) % ABG Base Excess (-2.0 to 3.0) mEq/L Liter Flow L/MIN Blood Gas Modality Sodium 135 L (136-145) mEq/L Potassium 4.8 H (3.5-4.5) mEq/L Chloride 102 (98-109) mEq/L Carbon Dioxide 18 L (19-29) mEq/L BUN 16 (7-20) mg/dL Creatinine 1.09 (0.57-1.11) mg/dL Est GFR ( Amer) 60 (> 60) Est GFR (Non-Af Amer) 49 L (> 60) BUN/Creatinine Ratio 15 (6-26) Glucose 160 H (70-99) mg/dL Calculated Osmolality 285 (280-300) Calcium 9.4 (8.6-10.8) mg/dL Total Bilirubin 1.0 (0.2-1.2) mg/dL AST 14 (5-34) Units/L ALT 9 (0-55) Units/L Alkaline Phosphatase 108 (38-126) Units/L Troponin I 0.02 (0-0.03) ng/mL B-Natriuretic Peptide (0-100) pg/mL Serum Total Protein 7.0 (6.0-8.3) g/dL Albumin 3.1 L (3.5-5.0) g/dL Globulin 3.9 H (2.4-3.5) g/dL Albumin/Globulin Ratio 0.8 L (1.1-2.2) 11/01/16 11/01/16 Range/Units 20:32 22:15 WBC (4.3-11.1) K/mcL RBC (3.82-4.97) M/mcL Hgb (11.5-15.4) g/dL Hct (35.3-44.9) % MCV (83.0-100.0) fL MCH (28.0-33.3) pg MCHC (31.6-35.5) g/dL RDW (11.5-14.5) % Plt Count (140-400) K/mcL MPV (9.4-12.4) fL Immature Gran % (0-4) % Seg Neutrophils % % Lymphocytes % % Monocytes % % Eosinophils % % Basophils % % Neutrophils # (1.6-8.9) K/mcL Lymphocytes # (0.6-4.6) K/mcL Monocytes # (0.0-1.3) K/mcL Eosinophils # (0.0-0.6) K/mcL Basophils # (0.0-0.2) K/mcL ABG pH 7.31 L (7.32-7.45) pH Units ABG pCO2 39 (35-45) mmHg ABG pO2 48 L* (85-104) mmHg ABG HCO3 19 L (21-27) mEq/L ABG Total CO2 20.5 (20-26) mEq/L ABG O2 Saturation 80 L (95-98) % ABG Base Excess -7.1 L (-2.0 to 3.0) mEq/L Liter Flow 4.5 L/MIN Blood Gas Modality NC Sodium (136-145) mEq/L Potassium (3.5-4.5) mEq/L Chloride (98-109) mEq/L Carbon Dioxide (19-29) mEq/L BUN (7-20) mg/dL Creatinine (0.57-1.11) mg/dL Est GFR ( Amer) (> 60) Est GFR (Non-Af Amer) (> 60) BUN/Creatinine Ratio (6-26) Glucose (70-99) mg/dL Calculated Osmolality (280-300) Calcium (8.6-10.8) mg/dL Total Bilirubin (0.2-1.2) mg/dL AST (5-34) Units/L ALT (0-55) Units/L Alkaline Phosphatase (38-126) Units/L Troponin I (0-0.03) ng/mL B-Natriuretic Peptide 1703 H (0-100) pg/mL Serum Total Protein (6.0-8.3) g/dL Albumin (3.5-5.0) g/dL Globulin (2.4-3.5) g/dL Albumin/Globulin Ratio (1.1-2.2)
[2016-11-01 20:42] LABS: Basophils # 0.2 K/mcL (0.0-0.2); Basophils % 0.7 %; Hematocrit 35.3 % (35.3-44.9); Hemoglobin 11.2 g/dL (11.5-15.4); Immature Granulocytes % 0.8 % (0-4); Lymphocytes # 2.1 K/mcL (0.6-4.6); Lymphocytes % 9.6 %; Mean Corpuscular HGB Conc 31.7 g/dL (31.6-35.5); Mean Corpuscular Hemoglobin 26.9 pg (28.0-33.3); Mean Corpuscular Volume 84.9 fL (83.0-100.0); Mean Platelet Volume 10.9 fL (9.4-12.4); Monocytes % 9.1 %; Neutrophils # 17.2 K/mcL (1.6-8.9); Platelet Count 312 K/mcL (140-400); Red Blood Count 4.16 M/mcL (3.82-4.97); Segmented Neutrophils % 79.8 %
[2016-11-01 21:01] LABS: Albumin 3.1 g/dL (3.5-5.0); Albumin/Globulin Ratio 0.8 (1.1-2.2); Calcium 9.4 mg/dL (8.6-10.8); Globulin 3.9 g/dL (2.4-3.5); Potassium 4.8 mEq/L (3.5-4.5)
[2016-11-01 22:39] LABS: ABG PCO2 39 mmHg (35-45); ABG PH 7.31 pH Units (7.32-7.45); ABG PO2 48 mmHg (85-104)
[2016-11-01 22:40] LABS: ABG Base Excess -7.1 mEq/L (-2.0 to 3.0); ABG HCO3 19 mEq/L (21-27); ABG Oxygen Saturation 80 % (95-98); ABG TCO2 20.5 mEq/L (20-26); Blood Gas Liter Flow 4.5 L/MIN
[2016-11-02] MEDS ORDERED: Furosemide 40 MG/4 ML VIAL IVP ONE (00:04)
[2016-11-02] MEDS ORDERED: Ondansetron ODT 4 MG TAB.RAPDIS PO PRN (05:55)
[2016-11-02] MEDS ORDERED: Azithromycin 500 MG in D5% in Water 250 ML IVPB ONE (06:51)
[2016-11-02] MEDS: MethylPREDNISolone 40 MG/ML VIAL IVP SCH ×3 (07:17→22:36)
[2016-11-02] MEDS: Ipratropium/Albuterol Neb 3 ML IH SCH ×3 (07:58→16:23)
[2016-11-02] MEDS ORDERED: Dextrose Gel 15 GM PO PRN ×2 (08:37)
[2016-11-02] MEDS ORDERED: D5% in Water 1,000 ML IVC PRN (08:37)
[2016-11-02] MEDS ORDERED: *HR* Dextrose 50 % in Water (Syg) 50 ML SYRINGE IVP PRN (08:37)
[2016-11-02] MEDS: Lactobacillus 1 EACH CAP.SPRINK PO SCH ×2 (08:56→20:30)
[2016-11-02] MEDS: Aspirin Enteric Coated 81 MG Tablet PO SCH (08:57)
[2016-11-02] MEDS: *HR* Digoxin 0.125 MG TABLET PO SCH (08:57)
[2016-11-02] MEDS: Furosemide 40 MG/4 ML VIAL IVP SCH ×2 (09:29→20:30)
--- NOTE | 2016-11-02 10:08 | Electrocardiograph Report ---
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
[2016-11-02] MEDS: Insulin LISPRO 300 UNITS/3 ML VIAL SQ SCH ×3 (11:40→20:31)
[2016-11-02] MEDS: ALPRAZolam 0.25 MG TABLET PO PRN ×2 (11:55→20:31)
--- NOTE | 2016-11-02 15:01 | Internal Med History&Physical ---
Date of Encounter: 11/02/16 Time of Encounter: 14:30 Assessment and Plan (1) Diastolic heart failure Current visit: No Status: Chronic She has been started on IV Lasix. Lanoxin will be continued. BN peptide will be monitored. Qualifiers: Heart failure chronicity: chronic Qualified Code(s): I50.32 - Chronic diastolic (congestive) heart failure (2) DM type 2 (diabetes mellitus, type 2) Current visit: No Status: Chronic Hemoglobin A1c was 7.2% on 09/15/2016. Continue Accu-Cheks with SSI Humalog coverage. 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 She can be referred to hematology/oncology as an outpatient. Qualifiers: Leukocytosis type: unspecified Qualified Code(s): D72.829 - Elevated white blood cell count, unspecified (4) CKD (chronic kidney disease) stage 3, GFR 30-59 ml/min Current visit: No Status: Chronic I will monitor renal indices as needed. (5) Hypoxemia Current visit: Yes Status: Acute Will order chest CT to further evaluate. D-dimer will be drawn prior to the CT to determine if contrast is needed. Internal Medicine - H&P: HPI Chief complaint: Dyspnea and hypoxemia Admitted From: Long-term Nursing Facility Plans for Post Hospital Care: Transfer Storage Engineer Care History of present illness: Ms. Jules is a 71 year old female who was sent to the emergency room after longterm staff reported her oxygen saturations to be in the 70s % despite using 2 L oxygen by nasal cannula. She was placed on an oxygen mask in route to the emergency room and her saturations leanna to the 80s %. She was evaluated in the emergency room and felt to have exacerbation of COPD and CHF. She was admitted to [facility] for ongoing care needs. She has been hospitalized at [facility] approximately 12 times in the past 3 years primarily with dyspnea felt secondary to COPD. She has smoked since age 12 up to 3 packs per day. She wears oxygen 24/7 except taking it off to smoke. She had PFTs at [facility] approximately June 2013 and was diagnosed with COPD/emphysema. A chest CT was done March 2016 which showed severe COPD. Past Med Surg Social Fam HX - Past Medical History Medical history: arthritis, asthma, COPD, CVA, diabetes, GERD, hyperlipidemia, hypertension, myocardial infarction, osteoporosis, peripheral artery disease, other Psychiatric history: anxiety, depression, panic disorder - Past Surgical History Surgical History: TRISTON/BSO, other - Social History Smoking Status: Current every day smoker Smokeless Tobacco Status: No Alcohol use: none Drug use: none - Family History Father Living Status: Hx Family Cardiac Disorders: Yes (Heart attack and stroke) Hx Family Endocrine Disorder: Yes (Diabetes) Mother Family Member Ethnicity: Non- Living Status: Hx Family Cardiac Disorders: Yes Hx Family Respiratory Disorders: Yes Hx Family Cancer: Yes Hx Family GI Disorders: Yes Internal Medicine - H&P: Meds Albuterol Sulfate [Ventolin Hfa] 18 gm IH Q4H PRN 08/07/16 [History] Aspirin [Lo-Dose Aspirin EC] 81 mg PO DAILY 09/03/16 [History] Citalopram 10 mg PO DAILY 09/03/16 [History] Digoxin [Lanoxin] 0.125 mg PO DAILY 09/03/16 [History] Ipratropium/Albuterol Neb [Duoneb] 3 ml IH Q6HR PRN 09/03/16 [History] Ondansetron HCl [Zofran] 4 mg PO Q4H PRN 09/03/16 [History] ALPRAZolam [Xanax 0.25 MG Tablet] 0.25 mg PO Q6H PRN #120 tab 09/06/16 [Rx] Mirtazapine [Remeron] 15 mg PO HS tab 09/06/16 [Rx] Clopidogrel [Plavix] 75 mg PO DAILY 11/02/16 [History] Insulin ASPART [NovoLOG] 100 unit SQ 11/02/16 [History] 3 Allergy/AdvReac Type Severity Reaction Status Date / Time Penicillins Allergy Hives Verified 11/01/16 20:13 lorazepam [From Ativan] AdvReac Rash Verified 11/01/16 20:13 All Systems PM: A 10-system review of systems was performed and is negative for pertinent findings except as documented above in the HPI. Review of systems: Review of systems from her August 2016 [facility] hospitalization were reviewed and revised as below. Gen.: Her weight has decreased from 63.049 kg at the 03/20/2016 hospitalization to 59.449 kg today Cardiovascular: She has a history of hypertension. She had an echocardiogram done during the April 2014 [facility] stay which showed LVEF of 65-70% with mild LV diastolic dysfunction and normal systolic function. There was mild aortic regurgitation. She had possible NSTEMI at [facility] hospitalization April 2014 but declined further workup such as heart catheterization. She was hospitalized November 2015 at [facility] and had borderline high troponin. She left AMA before cardiology consultation could be done. She also refused colonoscopy at an earlier [facility] hospitalization. Respiratory: As per history of present illness GI: She has GERD but denies disorders of her liver gallbladder or exocrine pancreas. She has not had EGD or colonoscopy. : No history of hematuria dysuria or kidney stones. She has chronic kidney disease stage III. Neurologic: No history of seizures. She is uncertain if she has had a stroke in the past. Endocrine: She has hyperlipidemia and diabetes but no known thyroid disease Hematology/oncology: She denies blood disorders or cancers. She has had microcytosis. She has history of B12 and folate deficiency. She has had over 100 CBC tests since October 2013 with elevation of WBC on approximately 90% of the tests here she was unaware of this. Psychiatric: She has anxiety and depression Musk skeletal: She has DJD and chronic low back pain but no known gout. - Constitutional Vitals: Temp Pulse Resp BP Pulse Ox 98.9 F 100 20 97/52 95 11/02/16 10:21 11/02/16 10:21 11/02/16 12:34 11/02/16 10:21 11/02/16 12:34 Exam: Gen.: She is a well-developed well-nourished female lying quietly in bed who appears in no severe distress at present time. HEENT: Head is atraumatic and normocephalic. Eyes: EOMI. There is no scleral icterus. Mouth: Mucosa is moist. Neck: Supple and nontender. There is no thyromegaly or adenopathy noted. Heart: Regular with rate approximately 112/m. No murmurs or gallops are heard. Lungs: She has diminished breath sounds diffusely. There is no expiratory wheezing, inspiratory crackles or egophony. Abdomen: Soft and nontender. No masses or guarding noted. Extremities: There is no cyanosis edema or clubbing noted. Dorsalis pedis and posterior tibial pulses are trace palpable bilaterally. She has mild DJD changes of her hands. Neurologic: Mental status: She is talkative and a good historian. Cranial nerves: Smile is symmetric. Forehead wrinkles bilaterally. Tongue protrudes midline. EOMI. Motor: There is no pronator drift. Cerebellar: Fair to nose is intact bilaterally. Skin: Warm and dry Internal Med - H&P Results - Labs CBC & Chem 7: 11/01/16 20:32 11/01/16 20:32 - VTE Reasons for not Prescribing Prophylaxis: Refused by patient
[2016-11-02] MEDS: Mirtazapine 15 MG TABLET PO SCH (20:30)
[2016-11-02] MEDS: Albuterol 2.5 MG/3 ML NEBULIZER IH PRN (21:44)
[2016-11-03] MEDS: MethylPREDNISolone 40 MG/ML VIAL IVP SCH (07:36)
[2016-11-03] MEDS: *HR* Enoxaparin 40 MG/0.4 ML SYRINGE SQ SCH (07:36)
[2016-11-03] MEDS: Albuterol 2.5 MG/3 ML NEBULIZER IH PRN ×2 (08:58→12:59)
[2016-11-03] MEDS: Insulin LISPRO 300 UNITS/3 ML VIAL SQ SCH ×4 (09:15→21:12)
[2016-11-03] MEDS: Lactobacillus 1 EACH CAP.SPRINK PO SCH ×2 (09:17→21:11)
[2016-11-03] MEDS: *HR* Digoxin 0.125 MG TABLET PO SCH (09:17)
[2016-11-03] MEDS: Furosemide 40 MG/4 ML VIAL IVP SCH ×2 (09:17→21:11)
[2016-11-03] MEDS: Aspirin Enteric Coated 81 MG Tablet PO SCH (09:17)
[2016-11-03] MEDS: ALPRAZolam 0.25 MG TABLET PO PRN (09:17)
--- NOTE | 2016-11-03 11:01 | Internal Med Progress Note ---
Date of Encounter: 11/03/16 Time of Encounter: 10:50 - Assessment and plan (1) Diastolic heart failure Current Visit: No Status: Chronic Assessment and plan: November 03. Continue present management. Will recheck labs in a.m. Qualifiers: Heart failure chronicity: chronic Qualified Code(s): I50.32 - Chronic diastolic (congestive) heart failure (2) DM type 2 (diabetes mellitus, type 2) Current Visit: No Status: Chronic Assessment and plan: November 03. Hemoglobin A1c was 7.2% on 09/15/2016. Continue Accu-Cheks with SSI Qualifiers: Diabetes mellitus complication status: with circulatory complication Diabetes mellitus complication detail: with peripheral angiopathy with gangrene Diabetes mellitus emt intermediate insulin use: with [facility] use Qualified Code( s): E11.52 - Type 2 diabetes mellitus with diabetic peripheral angiopathy with gangrene; Z79.4 - intermediate (current) use of insulin (3) Leukocytosis Current Visit: No Status: Chronic Assessment and plan: November 03. Present for at least 3 years. She can be referred to hematology/ oncology as an outpatient. Qualifiers: Leukocytosis type: unspecified Qualified Code(s): D72.829 - Elevated white blood cell count, unspecified (4) CKD (chronic kidney disease) stage 3, GFR 30-59 ml/min Current Visit: No Status: Chronic Assessment and plan: November 03. Will monitor renal indices as needed. (5) Hypoxemia Current Visit: Yes Status: Acute Assessment and plan: CT of chest was done without contrast since a large bore IV could not be maintained in the upper arm for contrast injection. Lingular infiltrate was seen. A VQ scan will be ordered to further evaluate for pulmonary embolism. - Subjective Interval history: November 03. She has no new complaints. - Constitutional Vitals: Temp Pulse Resp BP Pulse Ox 97.8 F 87 16 97/51 99 11/03/16 06:41 11/03/16 06:41 11/03/16 09:02 11/03/16 07:13 11/03/16 09:02 Exam: She is resting comfortably in bed and appears in no acute distress. She does not appear dyspneic. Her affect is bright and cheerful. I reviewed her medications and lab results and CT chest report. Internal Medicine: Result - Labs CBC & Chem 7: 11/01/16 20:32 11/01/16 20:32 - ABG Interpretation ABG results: ABG ABG pH 7.31 pH Units (7.32-7.45) L 11/01/16 22:15 ABG pCO2 39 mmHg (35-45) 11/01/16 22:15 ABG pO2 48 mmHg (85-104) L* 11/01/16 22:15 ABG O2 Saturation 80 % (95-98) L 11/01/16 22:15 PT/INR, D-dimer D-Dimer 1495 ng/mLFEU (0-500) H 11/02/16 15:40 - Impressions Impressions Chest CT 11/02/16 21:57 IMPRESSION: 1. Dense consolidation within the lingula, most compatible with pneumonia. That should be followed to resolution. 2. Mildly enlarged mediastinal lymph nodes, which are probably reactive. Again, this should be followed to resolution. 3. Small right pleural effusion with adjacent airspace disease, atelectasis versus pneumonia. D/ / Braydon Escobar MD / Braydon Escobar MD Interpreting Provider: Braydon Escobar MD - VTE Reasons for not Prescribing Prophylaxis: Refused by patient Consult Discharge Plan - Plan Referrals: NONE,PCP [Primary Care Provider] - 1 week
[2016-11-03] MEDS: Mirtazapine 15 MG TABLET PO SCH (21:11)
[2016-11-04 05:53] LABS: Basophils % 0.1 %; Hematocrit 30.9 % (35.3-44.9); Hemoglobin 9.8 g/dL (11.5-15.4); Lymphocytes # 1.8 K/mcL (0.6-4.6); Mean Corpuscular HGB Conc 31.7 g/dL (31.6-35.5); Mean Corpuscular Hemoglobin 26.8 pg (28.0-33.3); Mean Corpuscular Volume 84.4 fL (83.0-100.0); Mean Platelet Volume 11.2 fL (9.4-12.4); Monocytes # 1.1 K/mcL (0.0-1.3); Monocytes % 4.3 %; Neutrophils # 22.7 K/mcL (1.6-8.9); Platelet Count 316 K/mcL (140-400); Red Blood Count 3.66 M/mcL (3.82-4.97); Red Cell Distribution Width 16.8 % (11.5-14.5); Segmented Neutrophils % 87.6 %
[2016-11-04 06:06] LABS: Calcium 8.9 mg/dL (8.6-10.8); Potassium 4.9 mEq/L (3.5-4.5)
[2016-11-04] MEDS: *HR* Enoxaparin 40 MG/0.4 ML SYRINGE SQ SCH (06:35)
[2016-11-04 07:00] LABS: Platelet Estimate Normal (Normal)
[2016-11-04] MEDS: Insulin LISPRO 300 UNITS/3 ML VIAL SQ SCH ×2 (09:07→11:41)
[2016-11-04] MEDS: Aspirin Enteric Coated 81 MG Tablet PO SCH (09:12)
[2016-11-04] MEDS: Lactobacillus 1 EACH CAP.SPRINK PO SCH (09:14)
[2016-11-04] MEDS: Furosemide 40 MG/4 ML VIAL IVP SCH (09:15)
[2016-11-04] MEDS: *HR* Digoxin 0.125 MG TABLET PO SCH (09:17)
[2016-11-04 09:36] VITALS: BP 124/67
--- NOTE | 2016-11-04 10:15 | Discharge Summary ---
Date of Encounter: 11/04/16 Time of Encounter: 10:05 - Discharge Diagnosis (1) Pneumonia Priority: Primary Status: Acute Qualifiers: Pneumonia type: due to unspecified organism Laterality: left Lung location: unspecified part of lung Qualified Code(s): J18.9 - Pneumonia, unspecified organism (2) Diastolic heart failure Priority: Secondary Status: Chronic Qualifiers: Heart failure chronicity: chronic Qualified Code(s): I50.32 - Chronic diastolic (congestive) heart failure (3) DM type 2 (diabetes mellitus, type 2) Priority: Secondary Status: Chronic Qualifiers: Diabetes mellitus complication status: with circulatory complication Diabetes mellitus complication detail: with peripheral angiopathy with gangrene Diabetes mellitus snf insulin use: with snf use Qualified Code( s): E11.52 - Type 2 diabetes mellitus with diabetic peripheral angiopathy with gangrene; Z79.4 - long-term (current) use of insulin (4) Leukocytosis Priority: Secondary Status: Chronic Qualifiers: Leukocytosis type: unspecified Qualified Code(s): D72.829 - Elevated white blood cell count, unspecified (5) CKD (chronic kidney disease) stage 3, GFR 30-59 ml/min Priority: Secondary Status: Chronic (6) Hypoxemia Priority: Secondary Status: Resolved - Discharge Medications Prescriptions: Bumetanide [Bumex] 0.5 mg PO DAILY 365 Days tablet Isosorbide MONOnitrate (24 HR) [Imdur] 30 mg PO DAILY 365 Days tab.er.24h Lactobacillus [Culturelle] 1 each PO BID 10 Days cap.sprink Levofloxacin [Levaquin] 500 mg PO DAILY 10 Days tablet Home Medications: Albuterol Sulfate [Ventolin Hfa] 18 gm IH Q4H PRN 08/07/16 [History] Aspirin [Lo-Dose Aspirin EC] 81 mg PO DAILY 09/03/16 [History] Citalopram 10 mg PO DAILY 09/03/16 [History] Digoxin [Lanoxin] 0.125 mg PO DAILY 09/03/16 [History] Ipratropium/Albuterol Neb [Duoneb] 3 ml IH Q6HR PRN 09/03/16 [History] Ondansetron HCl [Zofran] 4 mg PO Q4H PRN 09/03/16 [History] ALPRAZolam [Xanax 0.25 MG Tablet] 0.25 mg PO Q6H PRN #120 tab 09/06/16 [Rx] Mirtazapine [Remeron] 15 mg PO HS tab 09/06/16 [Rx] Clopidogrel [Plavix] 75 mg PO DAILY 11/02/16 [History] Insulin ASPART [NovoLOG] 100 unit SQ 11/02/16 [History] Bumetanide [Bumex] 0.5 mg PO DAILY 365 Days tablet 11/04/16 [Rx] Isosorbide MONOnitrate (24 HR) [Imdur] 30 mg PO DAILY 365 Days tab.er.24h 11/04 [Rx] Lactobacillus [Culturelle] 1 each PO BID 10 Days cap.sprink 11/04/16 [Rx] Levofloxacin [Levaquin] 500 mg PO DAILY 10 Days tablet 11/04/16 [Rx] Allergies/Adverse Reactions: 3 Allergy/AdvReac Type Severity Reaction Status Date / Time Penicillins Allergy Hives Verified 11/01/16 20:13 lorazepam [From Ativan] AdvReac Rash Verified 11/01/16 20:13 Procedures/tests Complete & Pending: Procedures Performed prior 72 hours Category Date Time Status CT chest w/o contrast [CT chest wo con] [CT] Routine Cat Scan 11/02/16 21:57 Completed VQ Scan [NM pul vent and perfuse] [NM] Routine Exams 11/02/16 21:58 Completed Date of admission: 11/02/16 15:37 Primary care physician: PCP NONE - Patient Status Disposition: Transfer SNF Condition: Good Functional capacity at discharge: uses cane/walker Overall status at discharge: patient is progressing back to baseline - Discharge Instructions - Diet and Activity Activity: resume usual activities as tolerated, wear oxygen at all times Diet: advance to your usual diet Hospital course: Ms. Jules is a 71 year old female who was sent to the emergency room after [facility] staff reported her oxygen saturations to be in the 70s % despite using 2 L oxygen by nasal cannula. She was placed on an oxygen mask in route to the emergency room and her saturations leanna to the 80s %. She was evaluated in the emergency room and felt to have exacerbation of COPD and CHF. She was admitted to [facility] for ongoing care needs. Initial orders were written by the emergency room physician. I saw her on November 02 and performed the history and physical. She was started on IV Lasix. Lanoxin was continued. She had clinical improvement with stabilization of oxygen level. Chest CT was done to further evaluate her hypoxemia. IV contrast could not be done because large-bore IV could not be maintained for administration of contrast. The noncontrast chest CT showed lingular infiltrate and mildly enlarged mediastinal lymph nodes probably reactive. A VQ scan was done since d-dimer returned elevated at 1495. It was interpreted as low probability for pulmonary embolism. She had improvement in BN peptide from 1703 on admission to 752 on the day of discharge. She will be maintained on low dose Bumex and isosorbide at discharge. The WBC leanna slightly to 25.9 on the day of discharge with a left shift present. She will be given antibiotic and probiotic for 10 days [facility] the [facility] for [facility]. Blood work will be monitored. A repeat CT will be done in a few weeks to follow-up on the lingular infiltrate. Referral to hematology/ oncology will be considered if leukocytosis persists. She will follow with me at [facility]. - Time Spent with Patient Total time spent providing and/or coordinating discharge services: - Constitutional Vitals: Temp Pulse Resp BP Pulse Ox 98.6 F 96 20 124/67 100 11/04/16 06:34 11/04/16 09:35 11/04/16 06:34 11/04/16 09:35 11/04/16 09:35 - VTE Reasons for not Prescribing Prophylaxis: Refused by patient
--- NOTE | 2016-11-04 10:22 | Physician Discharge Referral ---
[facility]Care Referral Info Transfer To: [facility] Provider in Charge: [employer] Provider in Charge after Transfer: PCP ([employer]) - Diagnosis (1) Pneumonia Priority: Primary Status: Acute (2) Diastolic heart failure Priority: Secondary Status: Chronic (3) DM type 2 (diabetes mellitus, type 2) Priority: Secondary Status: Chronic (4) Leukocytosis Priority: Secondary Status: Chronic (5) CKD (chronic kidney disease) stage 3, GFR 30-59 ml/min Priority: Secondary Status: Chronic (6) Hypoxemia Priority: Secondary Status: Resolved Prognosis: Fair Aware of Diagnosis: Patient Aware of Prognosis: Patient - Transfer Medications Prescriptions: Bumetanide [Bumex] 0.5 mg PO DAILY 365 Days tablet Isosorbide MONOnitrate (24 HR) [Imdur] 30 mg PO DAILY 365 Days tab.er.24h Lactobacillus [Culturelle] 1 each PO BID 10 Days cap.sprink Levofloxacin [Levaquin] 500 mg PO DAILY 10 Days tablet Home Medications: Albuterol Sulfate [Ventolin Hfa] 18 gm IH Q4H PRN 08/07/16 [History] Aspirin [Lo-Dose Aspirin EC] 81 mg PO DAILY 09/03/16 [History] Citalopram 10 mg PO DAILY 09/03/16 [History] Digoxin [Lanoxin] 0.125 mg PO DAILY 09/03/16 [History] Ipratropium/Albuterol Neb [Duoneb] 3 ml IH Q6HR PRN 09/03/16 [History] Ondansetron HCl [Zofran] 4 mg PO Q4H PRN 09/03/16 [History] ALPRAZolam [Xanax 0.25 MG Tablet] 0.25 mg PO Q6H PRN #120 tab 09/06/16 [Rx] Mirtazapine [Remeron] 15 mg PO HS tab 09/06/16 [Rx] Clopidogrel [Plavix] 75 mg PO DAILY 11/02/16 [History] Insulin ASPART [NovoLOG] 100 unit SQ 11/02/16 [History] Bumetanide [Bumex] 0.5 mg PO DAILY 365 Days tablet 11/04/16 [Rx] Isosorbide MONOnitrate (24 HR) [Imdur] 30 mg PO DAILY 365 Days tab.er.24h 11/04 [Rx] Lactobacillus [Culturelle] 1 each PO BID 10 Days cap.sprink 11/04/16 [Rx] Levofloxacin [Levaquin] 500 mg PO DAILY 10 Days tablet 11/04/16 [Rx] Allergies/Adverse Reactions: 3 Allergy/AdvReac Type Severity Reaction Status Date / Time Penicillins Allergy Hives Verified 11/01/16 20:13 lorazepam [From Ativan] AdvReac Rash Verified 11/01/16 20:13 - Respiratory Orders Oxygen / L per min (2 L/m by nasal cannula 05/09.) Smoking Cessation: Smoking cessation has been advised. For more information, call the [place] Tobacco Quit Line at 9-382-UQGT-NOW. - Lab Orders Lab Orders: Other (include drug levels w/frequency) (CBC with differential, CMP , BN peptide, magnesium level in 10 days) - Mobility Orders Ambulate - Rehabiliation Orders Rehab Potential: Fair - Diet Orders Regular CERTIFICATION: I certify that the transfer of the above named patient to an Extended Care Facility is necessary for the continuing treatment of the diagnosis listed. The above information is true and accurate reflection of patient's current condition. Confidential - Redisclosure prohibited without a patient's written consent.
[2016-11-04] MEDS ORDERED: FLUARIX QUAD 2017-18 36MOS UP/PF 0.5 ML SYRINGE IM ONE (10:25)
== END 2016-11-04 12:40 | DRG 140 ==
LOC: EMEROOPIK 19:57 → INPPIK 19:57
PROVIDERS: ADMIT Internal Medicine; ATTEND Internal Medicine